=== PATIENT | male | born 1955 | race Caucasian/White ===

== ENCOUNTER 2018-06-21 18:02 | Inpatient (IN) | payer MEDICARE, MEDICAID ==
[~2018-06-21 18:02] MED LIST: ISOVUE-370 76%-LOCM 1 ML ONE
[2018-06-21 18:19] LABS: #Basophils 0.1 thou/uL (0.0-0.2); #Eosinphils 0.1 thou/uL (0.0-0.7); #Lymphocytes 2.7 thou/uL (1.20-3.40); #Monocytes 1.1 thou/uL (0.11-0.59); #Neutrophils 3.9 thou/uL (1.40-6.50); %Basophils 0.8 % (0.0-1.0); %Eosinophils 1.4 % (0.0-10.0); %Lymphocytes 34.2 % (21.0-51.0); %Monocytes 14.3 % (0.0-10.0); %Neutrophils 49.3 % (42.0-75.0); Hemoglobin 13.4 g/dL (14.0-18.0); Mean Corpuscular HGB CONC 32.9 g/dL (32.0-36.0); Mean Corpuscular Hemoglobin 31.6 pg (27.0-31.0); Mean Platelet Volume 6.5 fL (7.4-10.4); Platelet Count 205 thou/uL (130-400); RBC Distribution Width 12.2 % (11.5-14.5); Red Blood Cell (RBC) Count 4.23 mill/uL (4.70-6.10); White Blood Cell (WBC) Count 7.9 thou/uL (4.8-10.8)
[2018-06-21 18:27] LABS: INR-International Normal Ratio 1.1; PTT 30.2 SEC (22.9-36.1); Prothrombin Time 14.7 SEC (12.0-14.7)
--- NOTE | 2018-06-21 18:45 | CT ---
Exam: Brain CT without IV contrast: HISTORY: Level 2 stroke alert, and witness fall, seizure, history of prior seizures COMPARISON: 09/17/2016 FINDINGS: Large area of encephalomalacia in the left frontal lobe with considerable associated brain volume los s. Left-sided ventriculostomy tube. Prior left-sided craniotomy. No mass or bleed or other significant acute process. Stable from prior study. IMPRESSION: Extensive stable left frontal encephalomalacia, prior surgery, and old volume loss. No new mass or ac gregg hemorrhage. Findings were discussed with Dr. Riggins at 6:39 PM CODE CR
[2018-06-21 18:49] LABS: ALT (SGPT) 13 U/L (8-55); AST (SGOT) 18 U/L (5-34); Albumin 3.9 g/dL (3.4-4.8); Alkaline Phosphatase 42 U/L (40-150); Anion Gap 13 mmol/L (10-20); BUN (Urea Nitrogen) 17 mg/dL (8.4-25.7); Bilirubin, Total 0.8 mg/dL (0.2-1.2); CK (CPK) 111 U/L (30-200); Calc. Creatinine Clearance 0 mL/min (70-130); Calcium 9.2 mg/dL (7.8-10.44); Carbon Dioxide 25 mmol/L (23-31); Chloride 105 mmol/L (98-107); Estimated GFR-MDRD 83; Globulin 2.7 g/dL (2.4-3.5); Glucose 89 mg/dL (80-115); Potassium 3.3 mmol/L (3.5-5.1); Protein, Total 6.6 g/dL (5.8-8.1); Sodium 140 mmol/L (136-145)
--- NOTE | 2018-06-21 19:46 | RAD ---
PORTABLE CHEST: History: Fall with seizure activity. Comparison: 06-04-17 FINDINGS: Heart size is borderline. There is elevation of the right hemidiaphragm. Old right rib fractures are seen. There are post-operative changes of the right clavicle noted. Ventriculoperitoneal shunt tube i s seen. IMPRESSION: Chronic lung change. No acute process. POS: [facility] [place]
--- NOTE | 2018-06-21 20:09 | CT ---
EXAM: CT ANGIOGRAM OF THE HEAD WITH 3D RENDERING CT ANGIOGRAM OF THE NECK WITH 3D RENDERING: History: Seizure, stroke alert, unwitnessed fall. FINDINGS: CT ANGIOGRAM HEAD WITH 3D RENDERING: The left vertebral is the dominant vertebral. There are some atherosclerotic calcific plaques involvi ng the cavernous portions of both intracranial ICAs. No evidence for a major branch occlusion, in par ticular, the M1 segments bilaterally are patent. Area of encephalomalacia in the left frontal lobe wi th left craniotomy changes and left sided ventriculostomy tube. IMPRESSION: No evidence for significant major branch occlusion. No M1 segment abnormality. Minimal atheroscleroti c disease. Smaller caliber right vertebral with a more dominant left vertebral artery. Old left front al encephalomalacia. CT ANGIOGRAM NECK WITH 3D RENDERING: No evidence for significant carotid or vertebral artery stenosis. Mild atherosclerotic plaque. There is a poorly circumscribed somewhat elongated parenchymal density in the right upper lobe which has mo re of the appearance of a scar and was present and appears little changed from 2017 exam. IMPRESSION: No hemodynamically significant stenosis. Minimal atherosclerotic vascular disease. Findings were discussed with Dr. Riggins in the Emergency Department at 7:15 p.m. Code CR POS: [facility]
[2018-06-21] MEDS ORDERED: Aspirin Chewable 81 MG TAB ONE ×2 (20:49→20:50)
[2018-06-21] MEDS ORDERED: Acetaminophen 325 MG TAB PO PRN (22:39)
[2018-06-21] MEDS: Sodium Chloride 0.9% 1,000 ML IV SCH (23:50)
[2018-06-22 00:27] VITALS: BMI 24.5
--- NOTE | 2018-06-22 01:29 | HP ---
CHIEF COMPLAINT: Change in mental status and seizure. HISTORY OF PRESENT ILLNESS: The patient is a 62-year-old male with a history of seizure disorder, is a nursing room resident. 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 This is per ER documentation. The patient had an unwitnessed fall last night followed by a witnessed seizure. This is per again the ER records. The patient is unable to provide me any history. The patient then had another witnessed seizure at the senior living; however, it was noted that the patient was able to eat breakfast, however, appeared to continue to be very lethargic through lunch. At this time, he was brought into the hospital for further evaluation. Apparently, the patient was able to have a conversation with EMS en route and was noted to have a little bit of slurred speech. PAST MEDICAL HISTORY: 1. Seizure disorder. 2. Schizophrenia. 3. Alzheimer disease. 4. History of bowel obstruction. SURGICAL HISTORY: 1. 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 2. Hernia repair. 3. Resection of the brain tumor. 4. Tracheostomy with subsequent removal. SOCIAL HISTORY: No alcohol use, drug use, or smoking history per records. He is a DNAR and this is through outside hospital documentation. ALLERGIES: HE IS ALLERGIC TO DEPAKOTE. MEDICATIONS: 1. Cymbalta 30 mg once a day. 2. Keppra 500 mg b.i.d. 3. Lamictal 200 mg b.i.d. 4. Cogentin 1 mg daily. 5. Trazodone 50 mg at bedtime. 6. Seroquel 100 mg b.i.d. 7. Risperidone 2 mg b.i.d. FAMILY HISTORY: No history of heart disease or cancer. REVIEW OF SYSTEMS: Unable to obtain. PHYSICAL EXAMINATION: VITAL SIGNS: As of the following: Temperature of 98.9, respirations of 18, pulse of 61, blood pressure 113/73, 98% on 2 L. GENERAL: He appears drowsy, however, easily arousable. The patient is able to follow commands. Does not appear in any distress. HEENT: Normocephalic, atraumatic. No lymphadenopathy noted. Pupils are equal and reactive to light. He does have a small scab to his left eyebrow area. CV: S1 and S2 present. No murmurs, rubs, or gallops. LUNGS: Clear to auscultation. No rhonchi or wheezes noted. ABDOMEN: Soft and nontender. Bowel sounds are present x2. EXTREMITIES: No edema. Pedal pulses are present x2. NEUROVASCULAR: No focal deficits noted. The patient is able to move both upper and both lower extremities. SKIN: He does have a small abrasion to his left eyebrow area. MUSCULOSKELETAL: The patient has complete range of motion. He has no deficits noted. LABORATORY RESULTS: As of the following: WBCs of 7.9, hemoglobin of 13.4, hematocrit of 40.6, platelets of 205. Chemistries: Sodium of 140, potassium of 3.3, BUN of 17, creatinine 0.93. Troponins x2 were negative. Urine was not collected. The patient did have a CTA, which indicated no significant stenosis, minimal atherosclerotic vessel disease. He also had a brain CT, which indicated extensive stable left frontal encephalomalacia. No other volume loss. No new masses or acute hemorrhage noted. The patient also had a chest x-ray that just indicated chronic lung changes. No acute processes were noted. ASSESSMENT AND PLAN: The patient is a 62-year-old male who presents to the hospital after having a change in mental status. 1. Encephalopathy, most likely secondary to postictal state from the seizure. We will start the patient on some IV Keppra. Also, we will continue his home medications and also we will continue IV Keppra. CT head did not indicate any acute abnormalities. 2. History of schizophrenia. We will continue his home medications. 3. Seizure disorder. We will continue his home medications. I will also check a urinalysis on this patient. 4. Deep venous thrombosis prophylaxis. We will put the patient on sequential compressive dressings or subcu Lovenox. Job ID: [id number]
[2018-06-22 05:03] LABS: #Eosinphils 0.2 thou/uL (0.0-0.7); #Lymphocytes 1.7 thou/uL (1.20-3.40); #Monocytes 0.8 thou/uL (0.11-0.59); #Neutrophils 3.7 thou/uL (1.40-6.50); %Basophils 0.8 % (0.0-1.0); %Eosinophils 3.2 % (0.0-10.0); %Lymphocytes 26.6 % (21.0-51.0); %Monocytes 11.9 % (0.0-10.0); %Neutrophils 57.6 % (42.0-75.0); Hemoglobin 12.3 g/dL (14.0-18.0); Mean Corpuscular HGB CONC 33.4 g/dL (32.0-36.0); Mean Corpuscular Hemoglobin 32.7 pg (27.0-31.0); Mean Corpuscular Volume 97.9 fL (78.0-98.0); Mean Platelet Volume 6.3 fL (7.4-10.4); Platelet Count 219 thou/uL (130-400); RBC Distribution Width 12.1 % (11.5-14.5); Red Blood Cell (RBC) Count 3.75 mill/uL (4.70-6.10); White Blood Cell (WBC) Count 6.4 thou/uL (4.8-10.8)
[2018-06-22 05:22] LABS: Anion Gap 8 mmol/L (10-20); BUN (Urea Nitrogen) 19 mg/dL (8.4-25.7); Calc. Creatinine Clearance 106 mL/min (70-130); Calcium 8.8 mg/dL (7.8-10.44); Carbon Dioxide 28 mmol/L (23-31); Chloride 105 mmol/L (98-107); Estimated GFR-MDRD Greater than 90; Glucose 86 mg/dL (80-115); Potassium 3.2 mmol/L (3.5-5.1); Sodium 138 mmol/L (136-145)
[2018-06-22] MEDS: lamoTRIgine 100 MG TAB PO SCH ×2 (08:47→21:16)
[2018-06-22] MEDS: Enoxaparin Sodium 40 MG/0.4 ML SYRINGE SC SCH (08:48)
[2018-06-22] MEDS: traZODone HCl 50 MG TAB PO SCH (08:48)
[2018-06-22] MEDS: levETIRAcetam In NaCl (Iso-Os) 1,000 MG in Premix Bag 1 BAG IVPB SCH ×2 (09:42→21:15)
--- NOTE | 2018-06-22 13:49 | PDOC.PN ---
- Subjective Encounter Start Date: 06/22/18 Encounter Start Time: 10:47 Subjective: Admitted after seizures in the snf. 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 Deniedfever, headache or chest pain. - Objective Resuscitation Status - Order Detail: 06/21/18 22:39 Resuscitation Status Routine Resuscitation Status: FULL: Full Resuscitation Vital Signs & Weight: Vital Signs (12 hours) Temp Pulse Resp BP Pulse Ox 06/22/18 11:44 99.0 F 77 18 119/66 90 L 06/22/18 08:00 98.8 F 62 14 125/77 94 L 06/22/18 03:50 98.1 F 61 16 115/73 94 L Weight Weight 170 lb 14.4 oz Result Diagrams: 06/22/18 04:47 06/22/18 04:47 Additional Labs: Accuchecks 06/21/18 18:13 POC Glucose 95 Phys Exam - Physical Examination Constitutional: NAD HEENT: PERRLA, moist MMs Neck: no JVD, supple Respiratory: no wheezing, no rales, no rhonchi, clear to auscultation bilateral Cardiovascular: RRR Gastrointestinal: soft, non-tender, no distention, positive bowel sounds Musculoskeletal: no edema, pulses present Neurological: non-focal, moves all 4 limbs slow mentation. obeys simple command Dx/Plan (1) H/O brain tumor Code(s): Z87.898 - PERSONAL HISTORY OF OTHER SPECIFIED CONDITIONS Status: Chronic Comment: with prior surgery (2) Seizure disorder Code(s): G40.909 - EPILEPSY, UNSP, NOT INTRACTABLE, WITHOUT STATUS EPILEPTICUS Status: Chronic (3) Seizures Code(s): R56.9 - UNSPECIFIED CONVULSIONS Status: Chronic (4) Acute encephalopathy Code(s): G93.40 - ENCEPHALOPATHY, UNSPECIFIED Status: Acute Comment: Most likely due to post ictal state. Improving. - Plan Continue anti epileptics. -: Awaiting Neurology evaluation. -: PT/OT eval and treat. -: Seizure precaution to continue. * .
[2018-06-22 14:41] LABS: Bilirubin Negative (Negative); Blood, Urine Negative (Negative); Clarity CLEAR (Clear); Glucose, Urine (Dipstick) Negative (Negative); Leukocyte Negative (Negative); Nitrite Negative (Negative); Protein, Urine (Dipstick) Negative (Neg-Trace); Specific Gravity, Urine 1.026 (1.002-1.036)
[2018-06-22 14:56] LABS: Bacteria/HPF None Seen HPF (None Seen); Hyaline Casts/LPF NONE SEEN LPF (0-3 Hyaline); RBC/HPF None Seen HPF (0-3); Squamous Epithelial 0-3 HPF (0-3); WBC/HPF None Seen HPF (0-3)
[2018-06-22] MEDS: Sodium Chloride 0.9% 1,000 ML IV SCH (21:15)
--- NOTE | 2018-06-22 23:26 | CON ---
DATE OF CONSULTATION: 06/22/2018 CONSULTING PHYSICIAN: Hospitalist Services. IMPRESSION: Advanced dementia secondary to prior brain tumor with secondary seizures. PLAN: 1. Increase Keppra to 1000 mg twice a day. 2. Continue Lamictal 200 mg twice a day. 3. The patient can be returned to the longterm. HISTORY OF PRESENT ILLNESS: Mr. Shelton is a 62-year-old man with a past history of seizures, dementia, schizophrenia, brain tumor, ventricular shunt, who is a longterm resident. He apparently had a seizure and was transferred here. He had a CT scan of the brain done, which showed an old area of left frontal encephalomalacia. CT angiogram was negative. His lab work was otherwise negative. He has not had any further seizures since admission. PAST MEDICAL HISTORY: As listed above. ALLERGIES: DEPAKOTE. SOCIAL HISTORY: No tobacco or alcohol use. FAMILY HISTORY: Not obtainable. REVIEW OF SYSTEMS: Not obtainable. PHYSICAL EXAMINATION: GENERAL: He is a well-nourished, middle-aged man, lying quietly in bed. HEENT: Pupils are equal and reactive. Eye movements are conjugate. Cranium, normocephalic and atraumatic. There is a small scratch above the left eye. NECK: Supple. No lymphadenopathy noted. EXTREMITIES: No cyanosis or edema. NEUROLOGIC: He is mute and uncooperative. I could not get him to follow any commands. Face appears to be symmetric. His tone seems to be relatively symmetric. Stimulation produced symmetric movement. No abnormal movements are seen. SUMMARY: This is a middle-aged man with epilepsy secondary to prior brain tumor. He had breakthrough seizures despite his prior dosing. I would increase the Keppra dose and he can be discharged for outpatient monitoring. Job ID: [id number]
[2018-06-23] MEDS: Enoxaparin Sodium 40 MG/0.4 ML SYRINGE SC SCH (08:21)
[2018-06-23] MEDS: lamoTRIgine 100 MG TAB PO SCH (08:21)
[2018-06-23] MEDS: traZODone HCl 50 MG TAB PO SCH (08:21)
[2018-06-23] MEDS: levETIRAcetam In NaCl (Iso-Os) 1,000 MG in Premix Bag 1 BAG IVPB SCH (08:22)
--- NOTE | 2018-06-23 10:47 | DIS ---
DATE OF ADMISSION: 06/21/2018 DATE OF DISCHARGE: 06/23/2018 DISCHARGE DIAGNOSES: 1. Breakthrough seizure. 2. Seizure disorder. 3. History of brain tumor. 4. Acute metabolic encephalopathy/postictal state. 5. Hypokalemia. 6. Schizophrenia. CONSULTS: Neurology. HOSPITAL COURSE: A 62-year-old male with known history of seizure disorder, prior history of brain tumor status post surgery, who was admitted from the senior living after 2 episodes of seizures. Neurology consult was obtained, and this was felt to be breakthrough seizures. The patient was started on increased dose of Keppra and had no further episode during this hospitalization. Acute change in mental status was felt to be due to acute metabolic encephalopathy related to postictal state. Acute UTI, however, was ruled out with urinalysis. The patient was later discharged back to the senior living. He also had physical and occupational therapy and was felt to be in need of these, hence outpatient PT and OT was ordered on discharge. PHYSICAL EXAMINATION: VITAL SIGNS: Temperature 98.3, pulse 61, respiratory rate 14, SpO2 of 96% on 2 L nasal cannula, BP 121/77. GENERAL: Comfortable male, in no distress. Afebrile, anicteric, acyanotic. HEENT: Atraumatic. Pupils are reacting to light. Oral mucosa is moist. RESPIRATORY: Good air entry bilaterally with no crackle, rhonchi, or use of accessory muscles. CARDIOVASCULAR: Regular rhythm and rate with normal heart sounds. GI: Abdomen is full, soft, nontender, nondistended with normal bowel sounds. EXTREMITIES: Grossly normal looking atraumatic with no edema or erythema. NEUROLOGIC: Conscious and alert, oriented to person and place at least. The patient answers all questions. He, however, has slow mentation. Moves all extremities. PERTINENT DIAGNOSTIC DATA: CT scan of the brain showed extensive stable left frontal encephalomalacia, features of prior surgery and old volume loss. No new mass or acute hemorrhage noted. CT angio of the head showed no hemodynamically significant stenosis. Minimal atherosclerotic vascular disease was noted. DISCHARGE CONDITION: Improved. DISCHARGE MEDICATIONS: 1. Cogentin 1 mg p.o. b.i.d. 2. Cymbalta 30 mg p.o. daily. 3. Ferrous sulfate 325 mg p.o. b.i.d. 4. Lamotrigine 200 mg p.o. b.i.d. 5. Quetiapine fumarate 100 mg p.o. b.i.d. 6. Risperdal 3 mg p.o. b.i.d. 7. Trazodone 50 mg p.o. q.p.m. 8. Keppra 1000 mg p.o. b.i.d. FOLLOWUP: 1. Followup with PCP in 1 week. 2. Follow up with neurologist in 4 weeks. Discharge took 36 minutes. Job ID: [id number]
--- NOTE | 2018-06-23 10:54 | PQF ---
DATE: 06-23-18 ATTN: DR. RE WHITFIELD Please exercise your independent, professional judgment in responding to the clarification form. Clinical indicators are provided on the bottom of this form for your review Please check appropriate box(s): [ ] Encephalopathy: Type: [ ] Acute [ ] Subacute [ ] Chronic Etiology: [ ] Metabolic [ ] Toxic [ ] Other (please specify) [ ] Transient Alteration of Awareness [ ] Other diagnosis [ ] Unable to determine In addition, please specify: Present on Admission (POA): [ ] Yes [ ] No [ ] Unable to determine For continuity of documentation, please document condition throughout progress notes and discharge summary. Thank You. 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 TREATMENTS: NEUROLOGY CONSULT 06-22-18: ADVANCED DEMENTIA 2/2 TO PRIOR BRAIN TUMOR WITH SECONDARY SEIZURES (This form is maintained as a part of the permanent medical record) 2014 [employer]. All Rights Reserved MARY [email or web address] [email or web address] Office: [phone] [facility] HOSPITALRubén
[2018-06-23 12:23] VITALS: TEMP 98
[2018-06-23 14:00] VITALS: BP 108/74
== END 2018-06-23 12:30 | DRG 100 ==
LOC: ERS 18:02 → 2SE 20:25
PROVIDERS: ADMIT Emergency Medicine; ATTEND Emergency Medicine
DX: G40.89 Other seizures (principal); G93.41 Metabolic encephalopathy; Z66 Do not resuscitate; F20.9 Schizophrenia, unspecified; G30.9 Alzheimer's disease, unspecified; F02.80 Dementia in other diseases classified elsewhere, unspecified severity, without behavioral disturbance, psychotic disturbance, mood disturbance, and anxiety; E87.6 Hypokalemia; Z87.898 Personal history of other specified conditions; Z79.899 Other long term (current) drug therapy
CPT/HCPCS: 36415; 36416; 70450; 70496; 70498; 71045; 80048; 80053; 81001; 82550; 84484; 85025; 85610; 85730; 93005; 94760; J1650; J1953; Q9966

== ENCOUNTER 2018-10-13 01:33 | Inpatient (IN) | payer MEDICARE, MEDICAID ==
[2018-10-13] MEDS ORDERED: Acetaminophen 650 MG Suppository ONE (01:49)
[2018-10-13 02:12] LABS: #Lymphocytes 0.9 thou/uL (1.20-3.40); #Monocytes 0.6 thou/uL (0.11-0.59); #Neutrophils 8.9 thou/uL (1.40-6.50); %Eosinophils 0.1 % (0.0-10.0); %Lymphocytes 8.9 % (21.0-51.0); %Monocytes 5.9 % (0.0-10.0); Hemoglobin 14.3 g/dL (14.0-18.0); Mean Corpuscular HGB CONC 33.9 g/dL (32.0-36.0); Mean Corpuscular Hemoglobin 32.3 pg (27.0-31.0); Mean Corpuscular Volume 95.5 fL (78.0-98.0); Mean Platelet Volume 6.5 fL (7.4-10.4); Platelet Count 253 thou/uL (130-400); RBC Distribution Width 11.9 % (11.5-14.5); Red Blood Cell (RBC) Count 4.41 mill/uL (4.70-6.10); White Blood Cell (WBC) Count 10.5 thou/uL (4.8-10.8)
[2018-10-13 02:20] LABS: ALT (SGPT) 15 U/L (8-55); AST (SGOT) 25 U/L (5-34); Albumin 4.3 g/dL (3.4-4.8); Alkaline Phosphatase 56 U/L (40-150); Anion Gap 14 mmol/L (10-20); BUN (Urea Nitrogen) 18 mg/dL (8.4-25.7); Bilirubin, Total 0.4 mg/dL (0.2-1.2); Calc. Creatinine Clearance 0 mL/min (70-130); Carbon Dioxide 25 mmol/L (23-31); Chloride 101 mmol/L (98-107); Estimated GFR-MDRD 90; Globulin 3.4 g/dL (2.4-3.5); Glucose 117 mg/dL (80-115); Protein, Total 7.7 g/dL (5.8-8.1); Sodium 136 mmol/L (136-145)
[2018-10-13 02:32] LABS: Bacteria/HPF None Seen HPF (None Seen); Bilirubin Negative (Negative); Blood, Urine 2+ (Negative); Clarity Extra Turbid (Clear); Glucose, Urine (Dipstick) Normal (Negative); Leukocyte Negative Leu/uL (Negative); Nitrite Negative (Negative); Protein, Urine (Dipstick) 10 mg/dL (Neg-Trace); Squamous Epithelial None Seen HPF (0-3); Urobilinogen Normal mg/dL (Less than 2); WBC/HPF 0-3 HPF (0-3)
[2018-10-13 02:34] LABS: Unclassified Crystals 4+ HPF (None Seen)
[2018-10-13 02:35] LABS: UA Pathologist Review? Unknown Crystals
[2018-10-13] MEDS ORDERED: Piperacillin/Tazobactam 4.5 GM VIAL ONE (03:16)
[2018-10-13] MEDS ORDERED: Vancomycin HCl 1.75 GM in Sodium Chloride 0.9% 500 ML IVPB SCH ×2 (03:30→16:00)
[2018-10-13] MEDS ORDERED: Acetaminophen 325 MG TAB PO PRN (05:34)
[2018-10-13] MEDS ORDERED: HYDROcodone/Acetaminophen 5/325 mg Tablet PO PRN (05:34)
[2018-10-13] MEDS ORDERED: Ondansetron ODT 4 MG TAB PO PRN (05:34)
[2018-10-13] MEDS ORDERED: hydrALAZINE 20 MG/ML VIAL SLOW IVP PRN (05:34)
[2018-10-13] MEDS ORDERED: Loperamide HCl 2 MG CAP PO PRN (05:34)
[2018-10-13] MEDS ORDERED: Bisacodyl 10 MG SUPP PR PRN (05:34)
[2018-10-13] MEDS ORDERED: Diabetic Tussin 200 MG/10 ML UDCUP PO PRN (05:34)
[2018-10-13] MEDS ORDERED: Calcium Carbonate 500 MG ChewTAB PO PRN (05:34)
[2018-10-13] MEDS ORDERED: Cepastat Lozenges 1 LOZ PO PRN (05:34)
[2018-10-13] MEDS ORDERED: Zolpidem Tartrate 5 MG TAB PO PRN (05:34)
[2018-10-13] MEDS ORDERED: Senokot S 8.6-50 MG TAB PO PRN (05:34)
[2018-10-13] MEDS ORDERED: Loratadine 10 MG TAB PO PRN (05:34)
[2018-10-13] MEDS ORDERED: Sodium Chloride 0.65% Nasal 44 ML BOT EA NARE PRN (05:34)
[2018-10-13] MEDS ORDERED: Artificial Tears 18 DROP/0.9 ML EA EYE PRN (05:34)
[2018-10-13] MEDS ORDERED: Ondansetron PF 4 MG/2 ML Vial IVP PRN (05:34)
[2018-10-13 05:53] VITALS: BMI 22.0
[2018-10-13] MEDS: Sodium Chloride 0.9% 1,000 ML IV SCH ×2 (06:19→18:39)
[2018-10-13] MEDS: cefTRIAXone\\ROCEPHIN 2 GM in Sodium Chloride 0.9% 100 ML IVPB SCH (06:20)
--- NOTE | 2018-10-13 08:13 | RAD ---
SINGLE VIEW CHEST: HISTORY: Altered mental status with fever and tachycardia. COMPARISON: 06/21/2018 FINDINGS: A single view of the chest shows a normal sized cardiomediastinal silhouette. There is no evidence o f consolidation, mass, or pleural effusion. There are multiple right rib fractures, which may be rem ote. The patient has a plate on the right clavicle. 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 IMPRESSION: No evidence of acute cardiopulmonary disease. POS: [facility]
--- NOTE | 2018-10-13 08:47 | HP ---
PRIMARY CARE PHYSICIAN: [facility] Call Admission. REASON FOR ADMISSION: Encephalopathy, sepsis. HISTORY OF PRESENT ILLNESS: A 63-year-old male, who has underlying history of the schizophrenia, Alzheimer's type of dementia, and seizure disorder. Currently, the patient is completely encephalopathic and he cannot provide any history. [facility] and that is why history obtained from [facility] record as well as emergency room record. The patient was initially evaluated at [facility], where the patient had suspected finding of seizure. It was presumed that the patient had seizure and he was therefore postictal state. At [facility], the patient has DNR. At [facility], the patient was given Versed, Keppra, Cerebyx 1 g, Ativan, and another couple of doses of Versed. He had CT brain, which showed no new finding. CT cervical spine did not show any acute process. Routine blood test was also unremarkable. Subsequently, the patient was transferred to our emergency room and he had chest x-ray, which was not showing any acute process. The patient was febrile and that is why vancomycin and Zosyn was given and Tylenol rectally given and the patient was given IV fluid. Subsequently, he was admitted to telemetry floor. REVIEW OF SYSTEMS: All review of system tried to review with the patient, but unable to review at this point because of his encephalopathy and altered mental status. PAST MEDICAL HISTORY: Alzheimer's type of dementia, seizure disorder, Parkinson disease, chronic normocytic anemia, and history of CVA. PAST SURGICAL HISTORY: History of RIBBON HAND shunt, hernia repair, resection of brain tumor, and tracheostomy with subsequent removal. PAST PSYCHIATRIC HISTORY: Schizophrenia. SOCIAL HISTORY: The [facility] is from [facility]. He has out of hospital DNR. He has no history of tobacco, alcohol, or illicit drug abuse. ALLERGIES: THE PATIENT IS ALLERGIC TO DEPAKOTE. FAMILY HISTORY: No family history of coronary artery disease, stroke, or cancer. CURRENT HOME MEDICATION: 1. Cogentin 1 mg b.i.d. 2. Cymbalta 30 mg daily. 3. Ferrous sulfate 325 mg b.i.d. 4. Lamotrigine 200 mg p.o. b.i.d. 5. Seroquel 200 mg b.i.d. 6. Risperidone 3 mg p.o. b.i.d. 7. Trazodone 50 mg at bedtime. 8. Keppra 1000 mg b.i.d. EMERGENCY ROOM COURSE: As mentioned above while in hospital, the patient is given vancomycin, Zosyn, Tylenol, IV fluid. In another emergency room, the patient received Keppra, Cerebyx, and versed. PHYSICAL EXAMINATION: VITAL SIGNS: Currently, temperature 101.5, pulse 92, respiratory rate 20, saturation 97% on room air, and blood pressure 110/56. Weight 162 pounds. GENERAL: The patient is currently disoriented, in no obvious acute distress. Chronically ill. HEENT: Head; normocephalic, atraumatic. Eyes; pupils are round and reactive to light. Extraocular muscle intact. ENT; oropharynx within normal limits. Moist mucous membranes. No oral lesion. No pharyngeal erythema. No exudate. NECK: Supple. No JVD. No meningeal signs of irritation. LUNGS: Clear to auscultation without any rhonchi or rales. CARDIAC: S1 and S2 regular. Tachycardia. No murmur. No gallop. No rub. ABDOMEN: Soft. Bowel sounds present. Nontender. Nondistended. No organomegaly. No mass. No suprapubic tenderness. BACK: Unremarkable. No CVA tenderness. EXTREMITIES: Upper extremity, the patient does have contracture of right upper extremity, lower extremity bruising noted at bilateral knee. NEUROLOGIC: At this point, unable to assess because of altered mental status. SIGNIFICANT LABORATORY DATA: EKG showing sinus tachycardia, incomplete right bundle-branch block pattern, left anterior fascicular block. Chest x-ray based on my review, no acute cardiopulmonary process. CT brain based on my review, no acute intracranial process. CT cervical spine showing no acute fracture or dislocation. Significant labs; WBC 9.8, hemoglobin 14.0, and platelet 267. BMP; sodium 140, potassium 3.8, chloride 102, carbon dioxide 16, anion gap 26, BUN 20, creatinine 1.12, glucose 169, and calcium 9.9. Lactic acid 1.3. LFT; AST 21, ALT 14, alkaline phosphatase 54, and albumin 4.3. Procalcitonin 0.02. Urinalysis unremarkable. ASSESSMENT AND PLAN: 1. Acute on chronic encephalopathy, probably related with sepsis. Differential diagnosis is postictal phase from seizure. 2. Sepsis, unclear etiology. The patient has high-grade fever, but no leukocytosis. At this point, source of infection is not clear. Dr. Koo, infectious Disease will be consulted. 3. Seizure disorder. As per report, the patient had seizure at [facility], where he was given Keppra and Cerebyx. We will check Keppra level and we will consult Neurology as well for their opinion. Further investigation will defer to Neurology. 4. History of anxiety, depression, schizophrenia, bipolar disorder. The patient is on bunch of antipsychotic medication. Because of altered mental status, I will hold on all those medication. 5. Deep venous thrombosis prophylaxis. Lovenox 40 mg subcu daily. 6. Gastrointestinal prophylaxis. Pepcid 20 mg p.o. b.i.d. 7. Code status: The patient has out of hospital DNR that is confirmed. The patient will be DNR while in hospital. 8. Disposition plan: Based on clinical course, we will follow up on culture result and the patient will need bedside swallow evaluation and possibly speech evaluation and if the patient able to eat, then will continue with regular diet. Job ID: [id number]
[2018-10-13] MEDS ORDERED: FERROUS SULFATE 325 MG PO SCH (09:00)
[2018-10-13] MEDS: levETIRAcetam In NaCl (Iso-Os) 1,000 MG in Premix Bag 1 BAG IVPB SCH ×2 (09:11→23:52)
[2018-10-13] MEDS: Famotidine 20 MG TAB PO SCH ×2 (09:12→21:37)
[2018-10-13] MEDS: Ferrous Sulfate 325 MG TAB PO SCH ×2 (09:12→18:40)
[2018-10-13] MEDS: Enoxaparin Sodium 40 MG/0.4 ML SYRINGE SC SCH (09:12)
--- NOTE | 2018-10-13 17:29 | CON ---
DATE OF TELEMEDICINE CONSULTATION: 10/13/2018 Accompanying nurse is Jay Sultana. HISTORY OF PRESENT ILLNESS: The patient is unable to give any medical history. Most of the history was obtained from the chart and also from the RN. The patient has been encephalopathic. He has history of schizophrenia, Alzheimer's, and seizure disorder. He is unable to provide any history. He is in a retirement and the patient was evaluated at [facility] for possible seizure. It was presumed that he had a seizure at the retirement and was postictal. He was given Versed, Keppra, Cerebyx 1 g, Ativan, and more Versed at the [facility]. He was subsequently transferred here for higher level of care. CT scan was negative for any acute infarct or bleed. CT of the spine was also negative. The patient had labs, which were unremarkable at the outside facility, and in our ER , he had chest x-ray, which did not show any process. He was started on antibiotics for possible sepsis. He has not been observed to have any seizures in the hospital since admission. The patient had some rest tremor and is able to give his name per nurse. PAST MEDICAL HISTORY: 1. Alzheimer's. 2. Seizure disorder. 3. Parkinson disease. 4. Chronic anemia. 5. CVA. PAST SURGICAL HISTORY: 1. DELIVERY AND MAIL SORTER shunt. 2. Hernia repair. 3. Brain tumor resection. 4. Tracheostomy with removal subsequently. PREVIOUS PSYCHIATRIC HISTORY: Positive for schizophrenia. SOCIAL HISTORY: He lives in a retirement. He has no written history of smoking or alcohol in chart. ALLERGIES: STATED ALLERGY IN CHART IS DEPAKOTE. FAMILY HISTORY: Unknown. REVIEW OF SYSTEMS: Unobtainable due to his mental status. MEDICATIONS: At home include; 1. Cogentin. 2. Cymbalta. 3. Ferrous sulfate. 4. Lamictal. 5. Seroquel. 6. Risperidone. 7. Trazodone. 8. Keppra 1000 mg b.i.d. LABORATORY AND DIAGNOSTIC DATA: Lab workup so far; white count 10.5, hemoglobin 14.3, hematocrit 42.1, platelet count 253. Sodium 136, potassium 4.0, chloride 101, bicarb 25, BUN 18, creatinine 0.86, glucose 117. Liver functions within normal limits. Urinalysis is abnormal with blood and turbidity and ketones. His CT of the head was noted and this was performed at the outside facility. He has stable encephalomalacia of left frontal lobe with evidence of post left frontal craniotomy. Stable calcification along the margin of the left lateral ventricle. No intracranial hemorrhage, and no acute infarct or bleed. C-spine CT scan was also completed, which showed no acute findings. Laboratory workup as noted already. PHYSICAL EXAMINATION: VITAL SIGNS: Blood pressure 93/59, temperature 99.6, pulse 84, respiratory rate 18, and O2 sats 95% on room air. GENERAL APPEARANCE: He is pale, comfortable in bed. He has left upper extremity rest tremor, neck dystonia with positioning of his neck to the right. CHEST: Clear vesicular breathing. CARDIOVASCULAR: S1 and S2 heard. No murmurs. NEUROLOGICAL: He is unresponsive. He does try to talk, but his speech is difficult to understand and he moves his extremities spontaneously. He does not follow any commands. Cranial nerves, pupils 3 mm bilaterally. No facial asymmetry noted. Motor examination; left upper extremity rest tremor, dystonia of the neck with torticollis to the right, and he had rigidity of 3+ in both lower extremities, 2 + in upper extremities. He moves his extremities spontaneously, but not able to follow commands. He has withdrawal to pain in all extremities. Deep tendon reflexes 2 +. Sensory, cerebellar, unable to assess. Gait, not testable. IMPRESSION AND PLAN: The patient is a 63-year-old man with pre-existing Parkinson disease, question of schizophrenia, history of seizures, and dementia. He is currently admitted for possible seizures and postictal state. Based on his current medical record, he seems to have received fairly reasonable doses of Versed and Ativan in an attempt to control his seizures at the outside facility. He may still be processing these through his system. At this time, he is no longer having any further seizures. His examination when awake shows left upper extremity rest tremor and dystonia of the neck to the right with rigidity, which is usual for Parkinson's patient. He also has spontaneous movement of his extremities, but not to command. 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 His examination does not show focal weakness. At this time, recommendation is to continue Keppra 1000 mg b.i.d. and do not give this patient any sedatives for now. I will follow up the patient again tomorrow. Job ID: [id number] MTDD
[2018-10-13] MEDS: Vancomycin HCl 1.5 GM in Sodium Chloride 0.9% 250 ML 300 ML IVPB SCH (18:38)
[2018-10-14] MEDS: Vancomycin HCl 1.5 GM in Sodium Chloride 0.9% 250 ML 300 ML IVPB SCH ×2 (04:24→16:31)
[2018-10-14 05:03] LABS: #Eosinphils 0.2 thou/uL (0.0-0.7); #Lymphocytes 1.3 thou/uL (1.20-3.40); #Monocytes 0.8 thou/uL (0.11-0.59); #Neutrophils 5.2 thou/uL (1.40-6.50); %Basophils 0.5 % (0.0-1.0); %Eosinophils 2.2 % (0.0-10.0); %Lymphocytes 17.7 % (21.0-51.0); %Monocytes 10.5 % (0.0-10.0); %Neutrophils 69.1 % (42.0-75.0); Hemoglobin 12.3 g/dL (14.0-18.0); Mean Corpuscular HGB CONC 33.8 g/dL (32.0-36.0); Mean Corpuscular Volume 94.5 fL (78.0-98.0); Mean Platelet Volume 6.6 fL (7.4-10.4); Platelet Count 204 thou/uL (130-400); RBC Distribution Width 11.6 % (11.5-14.5); Red Blood Cell (RBC) Count 3.86 mill/uL (4.70-6.10); White Blood Cell (WBC) Count 7.5 thou/uL (4.8-10.8)
[2018-10-14 05:27] LABS: ALT (SGPT) 16 U/L (8-55); AST (SGOT) 49 U/L (5-34); Albumin 3.5 g/dL (3.4-4.8); Alkaline Phosphatase 41 U/L (40-150); Anion Gap 11 mmol/L (10-20); BUN (Urea Nitrogen) 10 mg/dL (8.4-25.7); Bilirubin, Total 0.6 mg/dL (0.2-1.2); Calc. Creatinine Clearance 108 mL/min (70-130); Calcium 8.7 mg/dL (7.8-10.44); Carbon Dioxide 23 mmol/L (23-31); Chloride 107 mmol/L (98-107); Estimated GFR-MDRD Greater than 90; Globulin 2.7 g/dL (2.4-3.5); Glucose 77 mg/dL (80-115); Potassium 3.3 mmol/L (3.5-5.1); Protein, Total 6.2 g/dL (5.8-8.1); Sodium 138 mmol/L (136-145)
[2018-10-14] MEDS: cefTRIAXone\\ROCEPHIN 2 GM in Sodium Chloride 0.9% 100 ML IVPB SCH (06:05)
[2018-10-14] MEDS: Sodium Chloride 0.9% 1,000 ML IV SCH ×3 (08:32→23:18)
[2018-10-14] MEDS ORDERED: Potassium Chloride 40 MEQ in Sodium Chloride 0.9% 500 ML IVPB SCH (08:45)
[2018-10-14] MEDS: Ferrous Sulfate 325 MG TAB PO SCH ×2 (08:54→16:42)
[2018-10-14] MEDS: Enoxaparin Sodium 40 MG/0.4 ML SYRINGE SC SCH (08:55)
[2018-10-14] MEDS: levETIRAcetam In NaCl (Iso-Os) 1,000 MG in Premix Bag 1 BAG IVPB SCH ×2 (08:55→23:10)
[2018-10-14] MEDS: Famotidine 20 MG TAB PO SCH ×3 (08:55→22:36)
--- NOTE | 2018-10-14 10:30 | PDOC.HOSPP ---
- Subjective Encounter Date: 10/14/18 Encounter Time: 10:28 Subjective: 63 y.o male with brain tumor s/p resection, seizure disorder, parkinson, dementia and schizophrenia who presented to ER from group home for evaluation of seizure and AMS and was found to be febrile and tachycardic. More awake today. Poor historian. Fever has subsided. - Objective Vital Signs & Weight: Vital Signs (12 hours) Temp Pulse Resp BP Pulse Ox 10/14/18 08:00 96 10/14/18 07:55 97.9 F 69 17 121/73 96 10/14/18 04:25 98.3 F 69 16 105/63 95 10/14/18 03:10 98.3 F 69 16 105/63 95 10/14/18 00:00 99.4 F Weight Weight 170 lb 11.2 oz I&O: 10/13/18 10/14/18 10/15/18 06:59 06:59 06:59 Intake Total 600 700 Balance 600 700 Result Diagrams: 10/14/18 04:28 10/14/18 04:28 ROS - Medication Medications: Active Medications Generic Name Dose Route Start Last Admin Trade Name Freq PRN Reason Stop Dose Admin Enoxaparin Sodium 40 mg 10/13/18 09:00 10/14/18 08:55 Lovenox SC 40 mg 0900 NICK Administration Famotidine 20 mg 10/13/18 09:00 10/14/18 08:55 Pepcid PO Not Given BID NICK Ferrous Sulfate 325 mg 10/13/18 08:00 10/14/18 08:54 Feosol PO Not Given BID- NICK Sodium Chloride 1,000 mls @ 100 mls/hr 10/13/18 05:45 10/14/18 08:32 Normal Saline 0.9% IV Not Given .Q10H NICK Ceftriaxone Sodium 2 gm/ 100 mls @ 200 mls/hr 10/13/18 06:00 10/14/18 06:05 Sodium Chloride IVPB 100 mls 0600 NICK Administration Levetiracetam 1,000 mg/ Device 100 mls @ 200 mls/hr 10/13/18 09:00 10/14/18 08:55 IVPB 100 mls BID NICK Administration Vancomycin HCl 1.5 gm/ Sodium 300 mls @ 200 mls/hr 10/13/18 16:00 10/14/18 04 :24 Chloride IVPB 300 mls Q12H NICK Administration Potassium Chloride 40 meq/ 520 mls @ 130 mls/hr 10/14/18 08:45 10/14/18 09:09 Sodium Chloride IVPB 10/14/18 12:00 520 mls NOW NICK Administration Sodium Chloride 10 ml 10/13/18 09:00 10/14/18 08:55 Flush - Normal Saline IVF Not Given Q12HR NICK - Exam awake alert General - other findings: afebrile Eye: anicteric sclera ENT: no oropharyngeal lesions (scars of prior head surgery noted), moist mucosa Neck: symmetric Heart: RRR Respiratory: no rales, no ronchi (Fair air entry bilaterally with few transmitted sound) Gastrointestinal: soft, non-tender, non-distended, normal bowel sounds Extremities: no cyanosis, no edema Neurological: CN's grossly intact (right upper limb weakness noted. Moving all other limbs but weakly) Hosp A/P (1) Streptococcus pneumoniae infection Status: Acute (2) Bacteremia due to Gram-positive bacteria Code(s): R78.81 - BACTEREMIA Status: Acute (3) Hypokalemia Code(s): E87.6 - HYPOKALEMIA Status: Acute (4) Parkinson disease Code(s): G20 - PARKINSON'S DISEASE Status: Acute (5) Alzheimer's dementia Code(s): G30.9 - ALZHEIMER'S DISEASE, UNSPECIFIED Status: Chronic (6) H/O brain tumor Code(s): Z87.898 - PERSONAL HISTORY OF OTHER SPECIFIED CONDITIONS Status: Chronic (7) Seizure disorder Code(s): G40.909 - EPILEPSY, UNSP, NOT INTRACTABLE, WITHOUT STATUS EPILEPTICUS Status: Chronic (8) Sepsis Code(s): A41.9 - SEPSIS, UNSPECIFIED ORGANISM Status: Acute (9) Acute encephalopathy Code(s): G93.40 - ENCEPHALOPATHY, UNSPECIFIED Status: Acute (10) Physical deconditioning Code(s): R53.81 - OTHER MALAISE Status: Acute - Plan increase Rocephin to 2 gram daily. Replete serum potassium. Await microbe susceptibility Await Neurology re evaluation continue seizure precation Avoid sedatives. Continue keppra. [place] oral intake.
[2018-10-14 15:16] LABS: Vancomycin, Trough 15.7 ug/mL
--- NOTE | 2018-10-14 21:10 | PRG ---
DATE OF TELEMEDICINE SERVICE: 10/14/2018 CHIEF COMPLAINT: Altered mental status. This is a followup Telemedicine consult with Jay Sultana. INTERVAL HISTORY: The patient is doing better. He is more awake. He still has mild weakness on the right side and left side upper extremity tremor. Per nursing staff, he had his breakfast today, and he is waking up more. He is on antibiotics currently for possible sepsis. LABORATORY WORKUP: White count 7.5, hemoglobin 12.3, hematocrit 36.5, platelet count 204. Chemistry; sodium 138, potassium 3.3, chloride 107, bicarb 23, BUN 10, creatinine 0.74, glucose 77. PHYSICAL EXAMINATION: VITAL SIGNS: Temperature 97.9, pulse 69, respiratory rate 17, O2 saturations 96 , blood pressure 121/73. GENERAL APPEARANCE: He is more awake today. He has left upper extremity tremor at rest. NEUROLOGIC: He is oriented to person and is also able to follow commands today. Motor examination shows mild weakness of the right side and left upper extremity tremor. Cranial nerves are normal. IMPRESSION: The patient is a 63-year-old man with Parkinson disease and altered mental status. He is thought to have some sepsis, and he is on antibiotics at this time. Currently, he is doing better today and is more oriented. RECOMMENDATIONS: No additional neurological issues at this time. Please continue his treatment for his Streptococcus pneumoniae infection and bacteremia. He can return to his halfway when stable. I will follow up as needed. Job ID: [id number] MTDD
[2018-10-15] MEDS: Vancomycin HCl 1.5 GM in Sodium Chloride 0.9% 250 ML 300 ML IVPB SCH ×2 (04:08→15:22)
[2018-10-15 04:40] LABS: #Eosinphils 0.2 thou/uL (0.0-0.7); #Lymphocytes 1.6 thou/uL (1.20-3.40); #Monocytes 0.8 thou/uL (0.11-0.59); #Neutrophils 3.7 thou/uL (1.40-6.50); %Basophils 0.2 % (0.0-1.0); %Eosinophils 2.5 % (0.0-10.0); %Lymphocytes 25.1 % (21.0-51.0); %Monocytes 13.2 % (0.0-10.0); %Neutrophils 58.9 % (42.0-75.0); Mean Corpuscular HGB CONC 34.1 g/dL (32.0-36.0); Mean Corpuscular Hemoglobin 32.3 pg (27.0-31.0); Mean Corpuscular Volume 94.9 fL (78.0-98.0); Mean Platelet Volume 6.5 fL (7.4-10.4); Platelet Count 222 thou/uL (130-400); RBC Distribution Width 11.7 % (11.5-14.5); Red Blood Cell (RBC) Count 4.03 mill/uL (4.70-6.10); White Blood Cell (WBC) Count 6.2 thou/uL (4.8-10.8)
[2018-10-15 05:01] LABS: ALT (SGPT) 15 U/L (8-55); AST (SGOT) 38 U/L (5-34); Albumin 3.6 g/dL (3.4-4.8); Alkaline Phosphatase 45 U/L (40-150); Anion Gap 9 mmol/L (10-20); BUN (Urea Nitrogen) 9 mg/dL (8.4-25.7); Bilirubin, Total 0.4 mg/dL (0.2-1.2); Calc. Creatinine Clearance 117 mL/min (70-130); Calcium 9.1 mg/dL (7.8-10.44); Carbon Dioxide 27 mmol/L (23-31); Chloride 104 mmol/L (98-107); Estimated GFR-MDRD Greater than 90; Globulin 2.8 g/dL (2.4-3.5); Glucose 90 mg/dL (80-115); Potassium 3.1 mmol/L (3.5-5.1); Protein, Total 6.4 g/dL (5.8-8.1); Sodium 137 mmol/L (136-145)
[2018-10-15] MEDS: cefTRIAXone\\ROCEPHIN 2 GM in Sodium Chloride 0.9% 100 ML IVPB SCH (06:47)
--- NOTE | 2018-10-15 09:21 | PDOC.HOSPP ---
- Subjective Encounter Date: 10/15/18 Encounter Time: : Subjective: 63 y.o male with brain tumor s/p resection, seizure disorder, parkinson, dementia and schizophrenia who presented to ER from [facility] for evaluation of seizure and AMS and was found to be febrile and tachycardic. Fever has subsided. No new problem. Refusing oral medications - Objective Vital Signs & Weight: Vital Signs (12 hours) Temp Pulse Resp BP Pulse Ox 10/15/18 08:00 99.0 F 71 20 127/85 92 L 10/15/18 07:50 92 L 10/15/18 04:00 99.5 F 73 18 129/78 92 L 10/15/18 00:00 99.2 F 72 16 140/84 94 L Weight Weight 170 lb 11.2 oz I&O: 10/14/18 10/15/18 10/16/18 06:59 06:59 06:59 Intake Total 700 780 300 Balance 700 780 300 Result Diagrams: 10/15/18 04:17 10/15/18 04:17 ROS - Medication Medications: Active Medications Generic Name Dose Route Start Last Admin Trade Name Freq PRN Reason Stop Dose Admin Enoxaparin Sodium 40 mg 10/13/18 09:00 10/14/18 08:55 Lovenox SC 40 mg 0900 NICK Administration Famotidine 20 mg 10/13/18 09:00 10/14/18 22:36 Pepcid PO Not Given BID NICK Ferrous Sulfate 325 mg 10/13/18 08:00 10/14/18 16:42 Feosol PO Not Given BID- NICK Ceftriaxone Sodium 2 gm/ 100 mls @ 200 mls/hr 10/13/18 06:00 10/15/18 06:47 Sodium Chloride IVPB 100 mls 0600 NICK Administration Levetiracetam 1,000 mg/ Device 100 mls @ 200 mls/hr 10/13/18 09:00 10/14/18 23:10 IVPB 100 mls BID NICK Administration Vancomycin HCl 1.5 gm/ Sodium 300 mls @ 200 mls/hr 10/13/18 16:00 10/15/18 04 :08 Chloride IVPB 300 mls Q12H NICK Administration Sodium Chloride 10 ml 10/13/18 09:00 10/14/18 21:54 Flush - Normal Saline IVF 10 ml Q12HR NICK Administration - Exam awake alert Eye: anicteric sclera Neck: no JVD Heart: RRR Respiratory: no wheezes, no rales, no ronchi Gastrointestinal: soft, non-tender, non-distended, normal bowel sounds Extremities: no edema Neurological - other findings: Awake and conversational. dysarthria limited speech and comprehension Hosp A/P (1) Hypokalemia Code(s): E87.6 - HYPOKALEMIA Status: Acute (2) Parkinson disease Code(s): G20 - PARKINSON'S DISEASE Status: Acute (3) Alzheimer's dementia Code(s): G30.9 - ALZHEIMER'S DISEASE, UNSPECIFIED Status: Chronic (4) H/O brain tumor Code(s): Z87.898 - PERSONAL HISTORY OF OTHER SPECIFIED CONDITIONS Status: Chronic (5) Seizure disorder Code(s): G40.909 - EPILEPSY, UNSP, NOT INTRACTABLE, WITHOUT STATUS EPILEPTICUS Status: Chronic (6) Sepsis Code(s): A41.9 - SEPSIS, UNSPECIFIED ORGANISM Status: Acute (7) Acute encephalopathy Code(s): G93.40 - ENCEPHALOPATHY, UNSPECIFIED Status: Acute (8) Physical deconditioning Code(s): R53.81 - OTHER MALAISE Status: Acute (9) Positive blood culture Code(s): R78.81 - BACTEREMIA Status: Acute - Plan Continue IV rocephin and Vanc. Replete serum potassium. Get repeat blood culture given multiple organisms growing in 1/2 bottles suggestive of contaminants continue seizure precaution Avoid sedatives. Continue keppra. [place] oral intake. DC IVF
[2018-10-15] MEDS: Potassium Chloride 20 MEQ TAB PO SCH ×3 (09:23→14:18)
[2018-10-15] MEDS: Ferrous Sulfate 325 MG TAB PO SCH ×2 (09:23→15:11)
[2018-10-15] MEDS: Famotidine 20 MG TAB PO SCH ×2 (09:23→20:13)
[2018-10-15] MEDS: levETIRAcetam In NaCl (Iso-Os) 1,000 MG in Premix Bag 1 BAG IVPB SCH ×2 (09:24→20:15)
[2018-10-15] MEDS: Enoxaparin Sodium 40 MG/0.4 ML SYRINGE SC SCH (09:24)
[2018-10-15] MEDS: Sodium Chloride 0.9% 1,000 ML IV SCH (09:28)
[2018-10-15] MEDS ORDERED: Potassium Chloride 40 MEQ in Sodium Chloride 0.9% 500 ML IVPB SCH (10:15)
--- NOTE | 2018-10-15 13:51 | PQF ---
ISMAEL GUERRERO OBINAHID [id number] [facility]-280 [id number] CLINICAL DOCUMENTATION IMPROVEMENT CLARIFICATION FORM: ICD-10 Updated PLEASE DO AN ADDENDUM TO THE PROGRESS NOTE WITH ANY DOCUMENTATION UPDATES OR ADDITIONS AND CARRY THROUGH TO DC SUMMARY. THANK YOU. DATE: 10/15/2018 ATTN:DR. Lilly GRIMALDO Please exercise your independent, professional judgment in responding to the clarification form. Clinical indicators are provided on the bottom of this form for your review. Please check appropriate box(s): Acute Encephalopathy: Etiology: [ ] Hypertensive [ ] Metabolic [ ] Toxic [ ] Hepatic with Coma [ ] Hepatic w/o Coma [ ] Hypoxic [ ] Septic [ ] Drug induced: [ ] Unspecified [ ] in the setting of underlying dementia [ ] Transient Alteration of Awareness [ x ] Other diagnosis Multifactorial most likely with sedatives and presumed sepsis interplaying [ ] Unable to determine In addition, please specify: Present on Admission (POA): [x ] Yes [ ] No [ ] Unable to determine For continuity of documentation, please document condition throughout progress notes and discharge summary. Thank You. CLINICAL INDICATORS - SIGNS / SYMPTOMS / LABS 10/13 H & P (NOEMI) A/P : 1) ACUTE ON CHRONIC ENCEPHALOPATHY, PROBABLY RELATED TO SEPSIS. DIFFERENTIAL DIAGNOSIS IS POSTICTAL PHASE FROM SEIZURE. 10/13 CONSULT (INDER) IMPRESSION:AT THIS TIME HE IS ENCEPHALOPATHIC, LIKELY MULTIFACTORIAL IN ETIOLOGY INCLUDING DECREASED ABORIGINAL COMMUNITY COUNCIL MEMBER RESERVE WITH FRONTAL LOBE SURGERY, PARKINSON'S , DEMENTIA, AND HE IS MORE PRONE TO HAVING HALLUCINATIONS OR ALTERED MENTAL STATUS. 10/14- 10/15 PN (OBI ) A/P : 8) ACUTE ENCEPHALOPATHY RISK: HX OF BRAIN TUMOR RESECTION, ALZHEIMER, DEMENTIA ( CONSULT/ INDER) TREATMENTS: NEUROLOGY CONSULT IV FLUIDS (10/13-PRESENT) ROCEPHIN IV (10/13-PRESENT) VANCOMYCIN IV (10/13-PRESENT) SUPPLEMENTAL OXYGEN THANK YOU ! ZULLY (This form is maintained as a part of the permanent medical record) 2014 [employer]. All Rights Reserved MARY BETH [phone] ELIE
[2018-10-16] MEDS: Vancomycin HCl 1.5 GM in Sodium Chloride 0.9% 250 ML 300 ML IVPB SCH ×2 (03:01→15:11)
[2018-10-16] MEDS: cefTRIAXone\\ROCEPHIN 2 GM in Sodium Chloride 0.9% 100 ML IVPB SCH (06:11)
[2018-10-16] MEDS: Famotidine 20 MG TAB PO SCH ×2 (08:29→22:28)
[2018-10-16] MEDS: Ferrous Sulfate 325 MG TAB PO SCH ×2 (08:29→16:46)
[2018-10-16] MEDS: Enoxaparin Sodium 40 MG/0.4 ML SYRINGE SC SCH (08:30)
[2018-10-16] MEDS: levETIRAcetam In NaCl (Iso-Os) 1,000 MG in Premix Bag 1 BAG IVPB SCH ×2 (08:30→22:27)
[2018-10-16 09:04] LABS: Anion Gap 13 mmol/L (10-20); BUN (Urea Nitrogen) 10 mg/dL (8.4-25.7); Calc. Creatinine Clearance 115 mL/min (70-130); Calcium 9.7 mg/dL (7.8-10.44); Carbon Dioxide 26 mmol/L (23-31); Chloride 106 mmol/L (98-107); Estimated GFR-MDRD Greater than 90; Glucose 91 mg/dL (80-115); Magnesium 2.1 mg/dL (1.6-2.6); Potassium 3.6 mmol/L (3.5-5.1); Sodium 141 mmol/L (136-145)
--- NOTE | 2018-10-16 16:57 | PDOC.HOSPP ---
- Subjective Encounter Date: 10/16/18 Encounter Time: 09:55 Subjective: 63 y.o male with brain tumor s/p resection, seizure disorder, parkinson, dementia and schizophrenia who presented to ER from skilled nursing for evaluation of seizure and AMS and was found to be febrile and tachycardic. Fever has subsided. Mental status has improved to baseline. No new problem. No seizure since admission. - Objective Vital Signs & Weight: Vital Signs (12 hours) Temp Pulse Pulse Resp BP BP BP 10/16/18 11:49 71 140/83 136/80 10/16/18 11:39 98.3 F 80 16 10/16/18 07:40 97.9 F 64 20 143/86 H BP Pulse Ox 10/16/18 11:49 10/16/18 11:39 135/83 92 L 10/16/18 07:40 90 L Weight Weight 170 lb 11.2 oz I&O: 10/15/18 10/16/18 10/17/18 06:59 06:59 06:59 Intake Total 780 1020 300 Balance 780 1020 300 Result Diagrams: 10/15/18 04:17 10/16/18 08:33 ROS - Medication Medications: Active Medications Generic Name Dose Route Start Last Admin Trade Name Freq PRN Reason Stop Dose Admin Enoxaparin Sodium 40 mg 10/13/18 09:00 10/16/18 08:30 Lovenox SC 40 mg 0900 NICK Administration Famotidine 20 mg 10/13/18 09:00 10/16/18 08:29 Pepcid PO Not Given BID NICK Ferrous Sulfate 325 mg 10/13/18 08:00 10/16/18 16:46 Feosol PO Not Given BID- NICK Ceftriaxone Sodium 2 gm/ 100 mls @ 200 mls/hr 10/13/18 06:00 10/16/18 06:11 Sodium Chloride IVPB 100 mls 0600 NCIK Administration Levetiracetam 1,000 mg/ Device 100 mls @ 200 mls/hr 10/13/18 09:00 10/16/18 08:30 IVPB 100 mls BID NICK Administration Vancomycin HCl 1.5 gm/ Sodium 300 mls @ 200 mls/hr 10/13/18 16:00 10/16/18 15 :11 Chloride IVPB 300 mls Q12H NICK Administration Sodium Chloride 10 ml 10/13/18 09:00 10/16/18 08:30 Flush - Normal Saline IVF 10 ml Q12HR NICK Administration - Exam awake alert Eye: anicteric sclera ENT: moist mucosa Neck: supple Heart: RRR Respiratory: no wheezes, no rales, no ronchi Gastrointestinal: soft, non-tender, non-distended, normal bowel sounds Extremities: no cyanosis, no edema Neurological: CN's grossly intact Neurological - other findings: slow mentation. Moving all limbs but weakly. right upper limb seem weaker Hosp A/P (1) Sepsis Code(s): A41.9 - SEPSIS, UNSPECIFIED ORGANISM Status: Acute (2) Seizure disorder Code(s): G40.909 - EPILEPSY, UNSP, NOT INTRACTABLE, WITHOUT STATUS EPILEPTICUS Status: Chronic (3) Acute encephalopathy Code(s): G93.40 - ENCEPHALOPATHY, UNSPECIFIED Status: Acute (4) Hypokalemia Code(s): E87.6 - HYPOKALEMIA Status: Acute (5) Parkinson disease Code(s): G20 - PARKINSON'S DISEASE Status: Acute (6) Alzheimer's dementia Code(s): G30.9 - ALZHEIMER'S DISEASE, UNSPECIFIED Status: Chronic (7) H/O brain tumor Code(s): Z87.898 - PERSONAL HISTORY OF OTHER SPECIFIED CONDITIONS Status: Chronic (8) Physical deconditioning Code(s): R53.81 - OTHER MALAISE Status: Acute (9) Positive blood culture Code(s): R78.81 - BACTEREMIA Status: Acute - Plan Continue IV rocephin and Vanc. Will get Fluoro guided LP for CSF analysis since there is no other source of infection. Repeat blood cultures are no growth so far continue seizure precaution Continue keppra. [place] oral intake.
[2018-10-17] MEDS: Vancomycin HCl 1.5 GM in Sodium Chloride 0.9% 250 ML 300 ML IVPB SCH (04:10)
[2018-10-17] MEDS: cefTRIAXone\\ROCEPHIN 2 GM in Sodium Chloride 0.9% 100 ML IVPB SCH ×2 (06:23→09:00)
[2018-10-17] MEDS: Enoxaparin Sodium 40 MG/0.4 ML SYRINGE SC SCH (08:43)
[2018-10-17] MEDS: Famotidine 20 MG TAB PO SCH ×2 (09:01→21:42)
[2018-10-17] MEDS: Ferrous Sulfate 325 MG TAB PO SCH ×2 (09:01→16:45)
[2018-10-17] MEDS: levETIRAcetam In NaCl (Iso-Os) 1,000 MG in Premix Bag 1 BAG IVPB SCH ×2 (09:03→21:40)
[2018-10-17] MEDS ORDERED: cefTRIAXone\\ROCEPHIN 2 GM in Sodium Chloride 0.9% 100 ML IVPB SCH (10:00)
--- NOTE | 2018-10-17 12:50 | RAD ---
Procedure: Lumbar puncture with fluoroscopic guidance Preprocedure and procedure diagnosis: Need for CSF analysis and inability to obtain CSF; altered ment al status Cloth Classer: Marzena Anesthesia: 10 mL of buffered 1% lidocaine Specimen: 6.5 mL of iodinated contrast Exposure: 1.1 minutes; 223.6 mcg/sq m TECHNIQUE: Prior to the procedure, the risks and benefits of a lumbar puncture were explained to the patient's family who consented fully to the procedure. Document Photographer radiographs were performed. This showed an inferior vena cava filter. No significant degenerative changes are seen. A radiopaque object was used to alvin the site of best entry into the lumbar canal on the skin. This a cheng was then prepped and draped in the usual sterile fashion. Lidocaine was used to anesthetize the skin and soft tissues down central canal. A 22-gauge spinal nee dle was then placed using fluoroscopic guidance into the central canal of the lumbar spine. CSF was able to be obtained. A total of 6.5 mL was obtained which was placed in 4 separate vials labe led 1 through 4. The patient tolerated the procedure well without immediate post procedure complication.
--- NOTE | 2018-10-17 12:59 | PDOC.HOSPP ---
- Subjective Encounter Date: 10/17/18 Encounter Time: 12:58 Subjective: 63 y.o male with brain tumor s/p resection, seizure disorder, parkinson, dementia and schizophrenia who presented to ER from [facility] for evaluation of seizure and AMS and was found to be febrile and tachycardic. Fever has subsided. Mental status has improved to baseline. No new problem. No seizure since admission. Had LP earlier today. - Objective Vital Signs & Weight: Vital Signs (12 hours) Temp Pulse Resp BP Pulse Ox 10/17/18 11:56 97.9 F 71 18 110/74 96 10/17/18 08:52 96 10/17/18 07:55 98.3 F 67 18 140/81 97 10/17/18 04:00 98.5 F 69 16 127/71 93 L Weight Weight 170 lb 11.2 oz I&O: 10/16/18 10/17/18 10/18/18 06:59 06:59 06:59 Intake Total 1020 1360 Balance 1020 1360 Result Diagrams: 10/15/18 04:17 10/16/18 08:33 ROS - Medication Medications: Active Medications Generic Name Dose Route Start Last Admin Trade Name Freq PRN Reason Stop Dose Admin Enoxaparin Sodium 40 mg 10/13/18 09:00 10/17/18 08:43 Lovenox SC Not Given 09 NICK Famotidine 20 mg 10/13/18 09:00 10/17/18 09:01 Pepcid PO 20 mg BID NICK Administration Ferrous Sulfate 325 mg 10/13/18 08:00 10/17/18 09:01 Feosol PO 325 mg BID-WM NICK Administration Levetiracetam 1,000 mg/ Device 100 mls @ 200 mls/hr 10/13/18 09:00 10/17/18 09:03 IVPB 100 mls BID NICK Administration Vancomycin HCl 1.5 gm/ Sodium 300 mls @ 200 mls/hr 10/13/18 16:00 10/17/18 04 :10 Chloride IVPB 300 mls Q12H NICK Administration Ceftriaxone Sodium 2 gm/ 100 mls @ 200 mls/hr 10/17/18 10:00 10/17/18 10:35 Sodium Chloride IVPB 100 mls 1000 NICK Administration Sodium Chloride 10 ml 10/13/18 09:00 10/17/18 09:03 Flush - Normal Saline IVF 10 ml Q12HR NICK Administration - Exam awake alert General - other findings: slow mentation Eye: anicteric sclera ENT: normocephalic atraumatic, moist mucosa Neck: supple, no JVD Heart: RRR Respiratory: no wheezes (Fair air entry bilaterally), no ronchi Gastrointestinal: soft, non-tender, non-distended, normal bowel sounds Extremities: no cyanosis, no edema Neurological: no new deficit (awake and moving all limbs. Slow mentation) Hosp A/P (1) Sepsis Code(s): A41.9 - SEPSIS, UNSPECIFIED ORGANISM Status: Acute (2) Seizure disorder Code(s): G40.909 - EPILEPSY, UNSP, NOT INTRACTABLE, WITHOUT STATUS EPILEPTICUS Status: Chronic (3) Acute encephalopathy Code(s): G93.40 - ENCEPHALOPATHY, UNSPECIFIED Status: Acute (4) Hypokalemia Code(s): E87.6 - HYPOKALEMIA Status: Acute (5) Parkinson disease Code(s): G20 - PARKINSON'S DISEASE Status: Acute (6) Alzheimer's dementia Code(s): G30.9 - ALZHEIMER'S DISEASE, UNSPECIFIED Status: Chronic (7) H/O brain tumor Code(s): Z87.898 - PERSONAL HISTORY OF OTHER SPECIFIED CONDITIONS Status: Chronic (8) Physical deconditioning Code(s): R53.81 - OTHER MALAISE Status: Acute (9) Positive blood culture Code(s): R78.81 - BACTEREMIA Status: Acute - Plan Continue IV rocephin and Vanc. Await CSF analysis. Source of infection remained unclear continue seizure precaution Continue keppra. [place] oral intake.
[2018-10-17 13:19] LABS: CSF, Glucose 63 mg/dl (40-70)
[2018-10-17 13:27] LABS: Color Of CSF Supernatant COLORLESS (Colorless); Tube # 2; Unspun CSF Color COLORLESS (Colorless)
[2018-10-17 13:39] LABS: CSF, Protein 241 mg/dL (15-40)
[2018-10-17 13:50] LABS: CSF Source CSF; Clarity Clear (Clear); Tube # 4; WBC/NonHematics Count - Manual 18 /cumm (0-5)
[2018-10-17 13:51] LABS: RBC Count - Manual 299 /cumm (None Seen)
[2018-10-17 15:17] LABS: Cell Count Non Hematic 30 %; Eosinophils 1 %; Lymphocytes 58 %; Segmented Neutrophils 11 %
[2018-10-17 15:18] LABS: Vancomycin, Trough 21.1 ug/mL
[2018-10-17] MEDS ORDERED: Vancomycin HCl 1.25 GM in Sodium Chloride 0.9% 250 ML 250 ML IVPB SCH (16:00)
--- NOTE | 2018-10-17 20:25 | CON ---
DATE OF CONSULTATION: 10/17/2018 REASON FOR CONSULTATION: Fever. HISTORY OF PRESENT ILLNESS: A 63-year-old, with history of schizophrenia, dementia, seizure disorder, who lives in a halfway and was sent over there because of change in mental status, possible postictal state. He was given Versed, Keppra, Cerebyx, Ativan, and transferred over. Initial findings; temperature 101.5, pulse 92, respirations 20, O2 saturation 97, and the exam was fairly benign except that he was not able to interact due to his altered mental status, possible postictal state. Chest x-ray with no acute findings. Initial white cell count 9.8, and 85% neutrophils. The creatinine was normal. Liver profile normal. Albumin 4.3. Urinalysis with 0 to 3 wbc's. One set of blood cultures out of two with 3 different Streptococci, probably contaminant. Repeat two sets of blood cultures were negative. In the hospital, he has remained afebrile after the initial temperature elevation of 101.5. Currently, Mr. Shelton is awake. He is eating dinner. He is not answering questions, although according to the nurse, he did before. I cannot review his subjective information at this point. There have been no reported respiratory symptoms. No obvious aspiration. No diarrhea, and he is voiding in the diaper. PAST MEDICAL HISTORY: Includes schizophrenia, dementia, seizure disorder, Parkinson disease, prior CVA. SURGICAL HISTORY: DIE STAMPER shunt, hernia repair, brain tumor resection, tracheostomy. SOCIAL HISTORY: retirement resident. Never smoker. ALLERGIES: DEPAKOTE. FAMILY HISTORY: Noncontributory. MEDICATIONS: 1. Cogentin. 2. Cymbalta. 3. Lamotrigine. 4. Seroquel. 5. Risperidone. 6. Trazodone. 7. Keppra. Current medications; 1. Tylenol. 2. Dulcolax. 3. Ceftriaxone. 4. Ferrous sulfate. 5. Keppra. 6. Loperamide. 7. Ondansetron. 8. Vancomycin. PHYSICAL EXAMINATION: VITAL SIGNS: He has been afebrile. Other vital signs are essentially normal. O2 saturation 96. SKIN: The patient has a peripheral IV access, and he is voiding in the diaper. No lymphadenopathy. HEENT: Temporal wasting. Ocular movements are conjugate. Oral cavity with numerous missing teeth, quite a bit of gum disease. NECK: Supple. No jugular vein distention. LUNGS: Symmetric, clear breath sounds. HEART: S1 and S2, regular rate without murmurs. ABDOMEN: Soft, not distended or tender. No ascites. No bladder distention. MUSCULOSKELETAL: No joint inflammatory activity. Plantar responses are flexor. No clonus. Strength seems to be preserved. LABORATORY DATA: White cell count 6.2, hemoglobin 13, MCV 94, platelets 222, with 58% neutrophils. CK was not done. Last CK is from June 2018. CSF was done and it showed 18 WBCs and 299 RBCs in the fourth tube, probably contaminant from accidental puncture of one of the venous plexus around the CSF subarachnoid area. Glucose was 63, and protein was 241, which is elevated. This could be secondary to admixture again from blood. Chest x-ray on this admission with no acute infiltrate. Multiple right rib fractures, which are remote probably. ASSESSMENT: 1. Schizophrenia/prior brain tumor and dementia or cognitive disorder. 2. Seizure activity reported with postictal phenomenon including low-grade fever. 3. Abnormalities detected on CSF, probably related to admixture of venous blood due to accidental puncture of one of the veins in the plexus around the CSF subarachnoid space. In other words, this is contamination of the sample by blood rather than true CSF abnormalities. 4. Bacteremia. DISCUSSION: The bacterial organisms isolated from one set probably reflect contamination of the sample rather than true bacteremia. The CSF findings are probably accidental venous blood mixing as well. I would recommend discontinuation of antimicrobial therapy, the low-grade temperature elevation and other manifestations are probably secondary to postictal phenomena. Job ID: [id number] [facility]
[2018-10-18] MEDS: levETIRAcetam In NaCl (Iso-Os) 1,000 MG in Premix Bag 1 BAG IVPB SCH (09:19)
[2018-10-18] MEDS: Ferrous Sulfate 325 MG TAB PO SCH (09:20)
[2018-10-18] MEDS: Famotidine 20 MG TAB PO SCH (09:20)
[2018-10-18] MEDS: Enoxaparin Sodium 40 MG/0.4 ML SYRINGE SC SCH (09:20)
--- NOTE | 2018-10-18 10:56 | PDOC.EVN ---
Event Note - Event Note Event Note: Seen and examined. For Disharge back to residential. Discharge summary dictated. #[id number]
--- NOTE | 2018-10-18 11:46 | DIS ---
DATE OF ADMISSION: 10/13/2018 DATE OF DISCHARGE: 10/18/2018 PRIMARY CARE PHYSICIAN: Monica Zhang MD DISCHARGE DIAGNOSES: 1. Acute encephalopathy due to medication, seizure and possible infection. 2. Seizure disorder. 3. Fever. 4. Hypokalemia. 5. Physical deconditioning. 6. Positive blood culture considered contaminant. 7. Dementia. 8. History of brain tumor. 9. Parkinson disease. 10. Systemic inflammatory response syndrome. PROCEDURE PERFORMED: Lumbar puncture. CONSULTS: 1. Neurology. 2. Infectious disease. HOSPITAL COURSE: A 63-year-old male patient with known history of brain tumor status post resection, hydrocephalus status post VETERINARY PHARMACOLOGIST shunt placement, seizure disorder, Parkinson's, dementia, and schizophrenia, who was brought to the ER from long term for evaluation of seizure and mental status changes. The patient initially was brought in due to seizure and received benzodiazepine, such that by the time he was transferred over here, he was somnolent. He also was found to have fever and tachycardia, concerning for infectious process. The patient was started on broad-spectrum antibiotics as well as anticonvulsants. Psychotropic medications and sedatives were discontinued and mental status improved to baseline. Neurologic consult was obtained, and it was felt that the acute mental status change was related to postictal state as well as use of sedatives and discontinuation of sedatives was recommended while anticonvulsants were continued. Initial blood cultures were positive for gram-positive cocci, but further identification grew 3 organisms including Strep mitis oralis or alpha Strep not Strep pneumonia and alpha strep not pneumonia #2. This was felt to be a contaminant, and repeat blood cultures were obtained, which had no growth. Chest x-ray was unremarkable as well as urinalysis, hence no clear source of infection. At this point, meningitis was considered given history of VETERINARY PHARMACOLOGIST shunt, hence lumbar puncture was obtained and this again was unremarkable. Infectious Disease consult was obtained, and he recommended discontinuation of antibiotics as the fever was due to the seizure. Antibiotics were discontinued, and the patient remained stable and was subsequently discharged back to the long term. PHYSICAL EXAMINATION: VITAL SIGNS: Temperature 98.7, pulse 72, respiratory rate 16, SpO2 of 92% on room air, blood pressure 111/67. GENERAL: Male patient in no obvious distress. Afebrile. Anicteric. Acyanotic. HEENT: Normocephalic, atraumatic. Oral mucosa is moist. RESPIRATORY: Fair air entry bilaterally with no obvious crackle or rhonchi or use of accessory muscles. CARDIOVASCULAR: Regular rhythm and rate with normal heart sounds 1 and 2. GI: Full, soft, nontender, nondistended with normal bowel sounds. EXTREMITIES: Grossly normal looking atraumatic with no edema or erythema. OUTREACH NURSE: The patient is awake. Has slow mentation. Obeys simple commands. Moves all extremities. DISCHARGE DISPOSITION: correction. DISCHARGE CONDITION: Improved to baseline. DISCHARGE MEDICATIONS: 1. Dulcolax suppository 10 mg per rectum p.r.n. daily. 2. Cymbalta 30 mg p.o. daily in the morning. 3. Ferrous sulfate 325 mg p.o. b.i.d. 4. Motrin 600 mg q.6 p.r.n. for pain. 5. DuoNeb q.i.d. p.r.n. 6. Lamotrigine 200 mg p.o. b.i.d. 7. Lorazepam 1 mg p.o. q.4 p.r.n. 8. Risperidone 4 mg p.o. b.i.d. 9. Trazodone 50 mg q.p.m. 10. Keppra 1000 mg p.o. b.i.d. 11. Senokot X two tablets p.o. b.i.d. p.r.n. for constipation. TIME SPENT: This discharge took more than 36 minutes. Job ID: [id number]
[2018-10-18 12:31] VITALS: BP 121/82
[2018-10-18 13:29] VITALS: TEMP 98.9
== END 2018-10-18 14:20 | DRG 100 ==
LOC: ERS 01:33 → 2NO 03:43 → 2SE 10-14 11:35
PROVIDERS: ADMIT Hospitalist; ATTEND Hospitalist
PROC: 009U3ZX Drainage of Spinal Canal, Percutaneous Approach, Diagnostic (ICD-10-PCS; principal; 2018-10-17)
PROC: B01BYZZ Fluoroscopy of Spinal Cord using Other Contrast (ICD-10-PCS; 2018-10-17)
DX: G40.909 Epilepsy, unspecified, not intractable, without status epilepticus (principal); G92 Toxic encephalopathy; R65.10 Systemic inflammatory response syndrome (SIRS) of non-infectious origin without acute organ dysfunction; Z66 Do not resuscitate; F20.9 Schizophrenia, unspecified; G30.9 Alzheimer's disease, unspecified; F02.80 Dementia in other diseases classified elsewhere, unspecified severity, without behavioral disturbance, psychotic disturbance, mood disturbance, and anxiety; D64.9 Anemia, unspecified; G20 Parkinson's disease; E87.6 Hypokalemia; T42.75XA Adverse effect of unspecified antiepileptic and sedative-hypnotic drugs, initial encounter; Z86.73 Personal history of transient ischemic attack (TIA), and cerebral infarction without residual deficits; Z79.899 Other long term (current) drug therapy
CPT/HCPCS: 36415; 51701; 62270; 71045; 80048; 80053; 80177; 80202; 80500; 81003; 81015; 82945; 83605; 83735; 84145; 84157; 85025; 85060; 87040; 87070; 87077; 87086; 87149; 87205; 89051; 93005; 96361; 96365; 96367; J0696; J1650; J1953; J2543; J3370; J3480; J3490; J7050

== ENCOUNTER 2018-12-12 06:47 | Inpatient (IN) | payer MEDICARE, MEDICAID ==
[2018-12-12 07:09] LABS: #Lymphocytes 0.9 thou/uL (1.20-3.40); #Monocytes 0.6 thou/uL (0.11-0.59); #Neutrophils 6.7 thou/uL (1.40-6.50); %Basophils 0.2 % (0.0-1.0); %Eosinophils 0.4 % (0.0-10.0); %Lymphocytes 10.7 % (21.0-51.0); %Monocytes 7.8 % (0.0-10.0); %Neutrophils 80.9 % (42.0-75.0); Hemoglobin 14.8 g/dL (14.0-18.0); Mean Corpuscular HGB CONC 34.1 g/dL (32.0-36.0); Mean Corpuscular Hemoglobin 32.1 pg (27.0-31.0); Mean Platelet Volume 6.6 fL (7.4-10.4); Platelet Count 218 thou/uL (130-400); RBC Distribution Width 12.3 % (11.5-14.5); Red Blood Cell (RBC) Count 4.62 mill/uL (4.70-6.10); White Blood Cell (WBC) Count 8.2 thou/uL (4.8-10.8)
[2018-12-12 07:26] LABS: ALT (SGPT) 12 U/L (8-55); AST (SGOT) 17 U/L (5-34); Albumin 4.2 g/dL (3.4-4.8); Alkaline Phosphatase 48 U/L (40-110); Anion Gap 15 mmol/L (10-20); BUN (Urea Nitrogen) 19 mg/dL (8.4-25.7); Bilirubin, Total 0.5 mg/dL (0.2-1.2); Calc. Creatinine Clearance 0 mL/min (70-130); Calcium 9.7 mg/dL (7.8-10.44); Carbon Dioxide 23 mmol/L (23-31); Chloride 104 mmol/L (98-107); Estimated GFR-MDRD 82; Globulin 3.2 g/dL (2.4-3.5); Glucose 105 mg/dL (80-115); Potassium 3.7 mmol/L (3.5-5.1); Protein, Total 7.4 g/dL (5.8-8.1); Sodium 138 mmol/L (136-145)
[2018-12-12] MEDS ORDERED: Lorazepam 2 MG/ML VIAL ONE (07:33)
[2018-12-12 07:35] LABS: INR-International Normal Ratio 1.1; PTT 29.7 SEC (22.9-36.1); Prothrombin Time 14.2 SEC (12.0-14.7)
[2018-12-12] MEDS ORDERED: levETIRAcetam In NaCl (Iso-Os) 1,000 MG in Premix Bag 1 BAG IVPB SCH (07:45)
[2018-12-12 08:07] LABS: Bacteria/HPF None Seen HPF (None Seen); Bilirubin Negative (Negative); Blood, Urine 2+ (Negative); Clarity Clear (Clear); Glucose, Urine (Dipstick) Normal (Negative); Leukocyte Negative Leu/uL (Negative); Nitrite Negative (Negative); Protein, Urine (Dipstick) 20 mg/dL (Neg-Trace); Squamous Epithelial None Seen HPF (0-3); Urobilinogen Normal mg/dL (Less than 2); WBC/HPF 0-3 HPF (0-3)
--- NOTE | 2018-12-12 09:11 | RAD ---
EXAM: CHEST ONE VIEW HISTORY: Trauma/injury after fall. COMPARISON: 10/13/2018. FINDINGS: Cardiac silhouette and pulmonary vasculature are within normal limits. The lungs are clear, no pneumo thorax or pleural effusion is seen. Postsurgical changes distal right clavicle are noted with a superior plate and multiple screws present. The distal right clavicle is elevated superiorly with res pect to the acromion which is stable when compared to a study on 06/21/2018. Remote bilateral rib fractures are present. A left-sided ventriculoperitoneal shunt catheter is noted in place which cours es into the upper abdomen. IMPRESSION: 1. No acute cardiopulmonary process. 2. Remote bilateral rib fractures with postsurgical changes distal right clavicle. Acromioclavicular joint separation on the right is seen but stable compared to study on 06/21/2018.
--- NOTE | 2018-12-12 09:13 | CT ---
PRELIMINARY REPORT/[facility]/EMERGENCY AFTER HOURS PROCEDURE: PROCEDURE INFORMATION: Exam: CT Head Without Contrast Exam date and time: 12/12/2018 7:01 AM Clinical history: 63 years old, male; Injury or trauma; Initial encounter; Abrasion; Forehead; Injury details: Level 2 trauma, fall from standing. ; Prior surgery; Surgery date: 6+ months; Surgery type: Shunt, history of brain tumor. TECHNIQUE: Imaging protocol: Computed tomography of the head without contrast. COMPARISON: No relevant prior studies available. FINDINGS: Brain: No acute intracerebral abnormality or injury. Chronic encephalomalacia is seen in the left frontotemporal lobes, presumably post brain tumor surgery. Ventricles: A ventriculostomy shunt catheter is present with the distal tip in the left lateral ventr icle occipital horn. Bones/joints: See Soft Tissues Finding. Sinuses: Visualized sinuses are unremarkable. No fluid levels. Mastoid air cells: Visualized mastoid air cells are well aerated. Soft tissues: Soft tissue swelling and a small scalp contusion are seen in the right occipital region on image 20 of series 3, with no underlying calvarial fractures identified. Prior left frontal craniotom y with thai holes in the left frontoparietal and left occipital regions. IMPRESSION: 1. Soft tissue swelling and a small scalp contusion are seen in the right occipital region on image 2 0 of series 3, with no underlying calvarial fractures identified. Prior left frontal craniotomy with bu rr holes in the left frontoparietal and left occipital regions. 2. No acute intracerebral abnormality or injury. 3. A ventriculostomy shunt catheter is present with the distal tip in the left lateral ventricle occi pital horn. 4. Chronic encephalomalacia is seen in the left frontotemporal lobes, presumably post brain tumor surgery. Thank you for allowing us to participate in the care of your patient. Dictated and Authenticated by: Tyrone Marshall MD 12/12/2018 7:26 AM Central Time ([place] & [place]) FINAL REPORT: EMERGENCY AFTER HOURS NONCONTRAST CT HEAD: HISTORY: Level 2 trauma. Injury after a fall. History of a brain tumor. COMPARISON: 10/12/2018. IMPRESSION: 1. No acute intracranial abnormality is demonstrated. 2. Right parietal occipital scalp hematoma without evidence of an underlying calvarial fracture. 3. Ventriculoperitoneal shunt catheter entering via a left parietal occipital approach with tip uncha nged in position. 4. Stable area of encephalomalacia left frontal lobe with evidence of prior left frontal craniotomy d efect. 5. Stable dystrophic appearing calcifications again seen along the margin of the left lateral ventric le superiorly. 6. Aside from right parietal occipital scalp soft tissue swelling, CT of the head is overall stable w hen compared to the prior exam. 7. Findings are in agreement with the preliminary report by [facility]. Transcribed Date/Time: 12/12/2018 10:07 AM
--- NOTE | 2018-12-12 09:16 | CT ---
PRELIMINARY REPORT/[facility]/EMERGENCY AFTER HOURS PROCEDURE: PROCEDURE INFORMATION: Exam: CT Cervical Spine Without Contrast Exam date and time: 12/12/2018 7:01 AM Clinical history: 63 years old, male; Injury or trauma; Injury details: Level 2 trauma, fall from standing TECHNIQUE: Imaging protocol: Computed tomography images of the cervical spine without contrast. COMPARISON: No relevant prior studies available. FINDINGS: Vertebrae: The cervical spine alignment is normal. Chronic degenerative vertebral body endplate osteophytosis with diminished disc height and anterior longitudinal ligament calcification is seen at levels C3-C7. Mild central spinal stenosis is present at C5/C6 secondary to posterior vertebral body endplate osteophytosis. Discs/Spinal canal/Neural foramina: Chronic degenerative bony neuroforaminal stenosis secondary to uncal joint and posterior facet joint arthropathy, bilaterally at C5/C6. Other bones/joints: No acute fractures. Soft tissues: Unremarkable prevertebral and posterior paraspinal soft tissues. Lungs: Lung apices are normal. IMPRESSION: 1. No acute fractures. 2. The cervical spine alignment is normal. 3. Chronic degenerative vertebral body endplate osteophytosis with diminished disc height and anterior longitudinal ligament calcification is seen at levels C3-C7. 4. Chronic degenerative bony neuroforaminal stenosis secondary to uncal joint and posterior facet joint arthropathy, bilaterally at C5/C6. 5. Mild central spinal stenosis is present at C5/C6 secondary to posterior vertebral body endplate osteophytosis. Thank you for allowing us to participate in the care of your patient. Dictated and Authenticated by: Tyrone Marshall MD 12/12/2018 7:47 AM Central Time ([place] & [place]) EMERGENT AFTER-HOURS NONCONTRAST CT CERVICAL SPINE: HISTORY: Level 2 trauma. Injury after a fall. COMPARISON: 10.12.2018. TECHNIQUE: Contiguous axial CT images are obtained through the cervical spine from the skull base to the level o f the T1 vertebral body. Sagittal and coronal reformatted images are provided. IMPRESSION: 1. Mild degenerative changes in the cervical spine, but no fracture or subluxation is seen. CT cervic al spine is similar to prior exam. 2. Findings are in agreement with the preliminary report by [facility]. Transcribed Date/Time: 12/12/2018 10:03 AM
[2018-12-12 11:18] LABS: Lactic Acid 0.7 mmol/L (0.5-2.2)
[2018-12-12] MEDS ORDERED: Ondansetron ODT 4 MG TAB SL PRN (14:43)
[2018-12-12] MEDS ORDERED: Acetaminophen 325 MG TAB PO PRN (14:43)
[2018-12-12] MEDS ORDERED: Ondansetron PF 4 MG/2 ML Vial IVP PRN (14:43)
[2018-12-12 16:00] VITALS: BMI 20.9
[2018-12-12] MEDS ORDERED: Bisacodyl 10 MG SUPP PR PRN (16:09)
[2018-12-12] MEDS ORDERED: Lorazepam 1 MG TAB PO PRN (16:09)
[2018-12-12] MEDS ORDERED: Senokot S 8.6-50 MG TAB PO PRN (16:09)
[2018-12-12] MEDS ORDERED: Ibuprofen 600 MG TAB PO PRN (16:09)
--- NOTE | 2018-12-12 16:30 | HP ---
CHIEF COMPLAINT: Recurrent seizures, status post head trauma and fall. HISTORY OF PRESENT ILLNESS: The patient is a 63-year-old long term resident , who was brought by the helicopter from [place], where the patient was found having seizures and chest pain. This was status post fall. Apparently, he had tonic-clonic seizures in the past and this was most likely related to brain tumor that he had, which was removed, but there was no seizure activity noted per EMS/flight crew. Apparently, he had some right hemiparesis today, which was new for the patient. PAST MEDICAL HISTORY: Positive for, 1. Parkinson disease. 2. Brain tumor. 3. Dementia. 4. Chronic normocytic anemia. 5. History of CVA. PAST SURGICAL HISTORY: 1. HOSTED SERVICES ANALYST shunt. 2. Hernia repair. 3. Resection of brain tumor. 4. Tracheostomy with subsequent removal. PAST PSYCHIATRIC HISTORY: Positive for schizophrenia. SOCIAL HISTORY: He lives at the long term. He had do not resuscitate status while in the long term. He does not have any history of tobacco use, alcohol use, or use of any illicit drugs. ALLERGIES: DEPAKOTE. CURRENT MEDICATIONS: 1. Cymbalta 30 mg once a day. 2. Trazodone 50 mg once a day. 3. Ferrous sulfate 325 mg once a day. 4. Lamotrigine 200 mg twice a day. 5. Keppra 1000 twice a day. 6. Risperdal 4 mg twice a day. 7. Docusate sodium 100 mg once a day. FAMILY HISTORY: Not obtainable. The patient does not tell me any information about his parents. He just says that both of them are . REVIEW OF SYSTEMS: Only positive symptoms mentioned in HPI. The rest of 14 systems' symptoms are negative. PHYSICAL EXAMINATION: VITAL SIGNS: Blood pressure is 123/79, temperature is 99.6, pulse is 76, respiratory rate is 16, O2 saturation is 95% on 0.5 L by nasal cannula. GENERAL: He is chronically ill-appearing patient. His speech is very slow and sporadic, and he seems to be somewhat confused, but we do not know his baseline. HEENT: His pupils are responding to light properly. They are normal size. Sclerae are nonicteric. He has a laceration of the right occipital area, which is not bleeding and that is more like an abrasion. Oral mucosa is slightly dry. Poor oral hygiene. NECK: Supple. LUNGS: Clear. HEART: S1 and S2 normal. No S3. No S4. ABDOMEN: Soft, nontender, and nondistended. Bowel sounds are present. No organomegaly. EXTREMITIES: No clubbing, cyanosis, or edema. He has good pulses on tibialis posterior arteries and less palpable pulses on dorsalis pedis arteries, similar bilaterally. NEUROLOGIC: He is very slow to response. He responds with simple answers, one or two words and it is only sporadically, but he is able to move his all 4 extremities. He has some mild difference in terms of motor function in the right upper extremity. Ygbvtw-ye-zvon testing is done relatively well. LABORATORY DATA: White count of 8.2, hemoglobin 14.8, hematocrit 43.4, platelet count 218. INR is 1.1 and PT is 14.2. Normal electrolytes. Normal kidney function. Lactic acid 2.8, then repeat is 0.7. The rest of big chemistry panel is within normal limits. Troponin I is less than 0.010 and TSH third generation is 1.47. Urinalysis showed 10 of ketones, 2+ blood, and 4 to 6 rbc's. A chest x- ray from today showed no acute abnormalities. Cervical spine showed some degenerative changes bilaterally at C5-C6 and anterior longitudinal ligament calcification at the level of C3 through C5. There is no acute fracture and there is mild central spinal stenosis at C3-C5 level secondary to posterior vertebral body endplate osteophytosis. Also, his CT of the brain was done and this was personally reviewed by me, which showed soft tissue swelling and small scab contusion in the right occipital region. Also, prior left frontal craniotomy with thai holes in the left frontoparietal and left occipital regions. No acute intracerebral abnormality or injury. Also, a ventriculostomy shunt catheter is present with the distal tip in the left lateral ventricle occipital horn. Also, there is a chronic encephalomalacia seen in the left frontotemporal lobes, presumably post brain tumor surgery. EKG showed normal sinus rhythm with ventricular rate of 68 beats per minute. This was personally reviewed by me. IMPRESSION AND PLAN: 1. Recurrent seizures. Trigger is unknown. Also, he had seizures in the emergency room. He was given Ativan, intravenous Keppra, and 1 L of normal saline. We will get Neurology involved. 2. History of schizophrenia. 3. Parkinson disease. 4. History of major depression disorder. 5. Dementia. 6. Chronic anemia. 7. History of epilepsy. 8. History of brain tumor, status post removal. 9. Chest pain. This will be addressed with additional 2 sets of troponin level and electrocardiogram does not show any evidence of acute ischemia or acute cardiac problem. 10. Head trauma, status post fall, but laceration is minor and it does not require any surgical intervention at this point. We will continue his Keppra in 1000 mg twice a day. Continue his other long term medications. We will do DVT prophylaxis. We will order MRI of the brain with and without contrast. Job ID: [id number] [facility]
[2018-12-12] MEDS: Sodium Chloride 0.9% 1,000 ML IV SCH (16:36)
[2018-12-12] MEDS: risperiDONE 1 MG TAB PO SCH ×2 (21:35→21:49)
[2018-12-12] MEDS: traZODone HCl 50 MG TAB PO SCH ×2 (21:35→21:49)
[2018-12-12] MEDS: lamoTRIgine 100 MG TAB PO SCH ×2 (21:35→21:49)
[2018-12-12] MEDS: Ferrous Sulfate 325 MG TAB PO SCH ×2 (21:36→21:48)
[2018-12-12] MEDS: levETIRAcetam In NaCl (Iso-Os) 1,000 MG in Premix Bag 1 BAG IVPB SCH (21:37)
[2018-12-13 04:51] LABS: #Eosinphils 0.1 thou/uL (0.0-0.7); #Lymphocytes 1.4 thou/uL (1.20-3.40); #Monocytes 0.7 thou/uL (0.11-0.59); #Neutrophils 3.3 thou/uL (1.40-6.50); %Basophils 0.6 % (0.0-1.0); %Eosinophils 1.8 % (0.0-10.0); %Lymphocytes 25.6 % (21.0-51.0); Hemoglobin 12.2 g/dL (14.0-18.0); Mean Corpuscular HGB CONC 34.4 g/dL (32.0-36.0); Mean Corpuscular Hemoglobin 32.7 pg (27.0-31.0); Mean Corpuscular Volume 94.9 fL (78.0-98.0); Mean Platelet Volume 6.4 fL (7.4-10.4); Platelet Count 210 thou/uL (130-400); RBC Distribution Width 12.1 % (11.5-14.5); Red Blood Cell (RBC) Count 3.73 mill/uL (4.70-6.10); White Blood Cell (WBC) Count 5.6 thou/uL (4.8-10.8)
[2018-12-13 05:11] LABS: Anion Gap 9 mmol/L (10-20); BUN (Urea Nitrogen) 17 mg/dL (8.4-25.7); Calc. Creatinine Clearance 100 mL/min (70-130); Calcium 8.8 mg/dL (7.8-10.44); Carbon Dioxide 28 mmol/L (23-31); Chloride 104 mmol/L (98-107); Estimated GFR-MDRD Greater than 90; Glucose 84 mg/dL (80-115); Potassium 3.4 mmol/L (3.5-5.1); Sodium 138 mmol/L (136-145)
[2018-12-13] MEDS: Sodium Chloride 0.9% 1,000 ML IV SCH ×2 (06:41→17:28)
[2018-12-13] MEDS ORDERED: Potassium Chloride 20 MEQ TAB PO SCH (07:15)
[2018-12-13] MEDS ORDERED: FLU VACC QS2019-20(6MOS UP)/PF 60 MCG/0.5 ML SYRINGE IM ONE (09:00)
[2018-12-13] MEDS: levETIRAcetam In NaCl (Iso-Os) 1,000 MG in Premix Bag 1 BAG IVPB SCH (10:21)
[2018-12-13] MEDS: Enoxaparin Sodium 40 MG/0.4 ML SYRINGE SC SCH (10:21)
[2018-12-13] MEDS: DULoxetine 30 MG CAP PO SCH (11:01)
[2018-12-13] MEDS: Ferrous Sulfate 325 MG TAB PO SCH ×2 (11:01→21:58)
[2018-12-13] MEDS: risperiDONE 1 MG TAB PO SCH ×2 (11:02→21:58)
[2018-12-13] MEDS: lamoTRIgine 100 MG TAB PO SCH ×2 (11:02→21:58)
--- NOTE | 2018-12-13 13:49 | PRG ---
DATE OF SERVICE: SUBJECTIVE: The patient is seen and examined at the bedside. He is much more awake and alert this morning, although he is not very talkative. OBJECTIVE: VITAL SIGNS: Blood pressure is 122/76, pulse is 61, temperature is 98.9, respirations 18, O2 saturation is 100% on nasal cannula. GENERAL: He tries to follow my commands. HEENT: His sclerae are nonicteric. Conjunctivae pinkish. Oral mucosa is moist. NECK: Supple. LUNGS: Clear. HEART: S1, S2 normal. ABDOMEN: Soft, nontender. EXTREMITIES: No clubbing, cyanosis, or edema. NEUROLOGIC: He tries to follow my commands, but he is slow in response. He moves his all 4 extremities. LABORATORY DATA: White count of 5.6, hemoglobin 12.2, hematocrit 35.3, platelet count is 210. Sodium of 138, potassium 3.4, chloride 104, CO2 of 28, BUN 17, creatinine 0.76, glucose 84, calcium 8.8. Microbiology; blood cultures negative. Urine culture negative. IMPRESSION: 1. Recurrent seizures. 2. History of schizophrenia. 3. Parkinson disease. 4. History of major depression. 5. Dementia. 6. Chronic anemia. 7. History of epilepsy. 8. History of brain tumor, status post surgical removal. 9. Chest pain with negative workup so far. 10. Head trauma, not require any surgical intervention. PLAN: The patient is on Keppra. We are waiting for Neurology to see the patient. The order for MRI was canceled by neurologist and we are going to reconcile his home medications and stop his IV fluids if he is able to take fluids orally and he should be able to go back to the detention as soon as he is cleared by Neurology. Job ID: [id number]
[2018-12-13] MEDS: levETIRAcetam In NaCl (Iso-Os) 1,500 MG in Premix Bag 1 BAG IVPB SCH (21:56)
[2018-12-13] MEDS: traZODone HCl 50 MG TAB PO SCH (21:58)
--- NOTE | 2018-12-13 23:57 | CON ---
DATE OF CONSULTATION: 12/13/2018 CONSULTING PHYSICIAN: Hospitalist Service. IMPRESSION: 1. Recurrent seizures. 2. History of brain tumor with resection in the left parieto-frontal lobe. 3. History of schizophrenia and depression. PLAN: 1. Increase his Keppra to 1500 mg twice a day. 2. Continue Lamictal at current dosing. HISTORY OF PRESENT ILLNESS: Mr. Shelton is a 63-year-old man, is a [facility] resident. He has a known history of seizures. He apparently had a breakthrough seizure and was brought to the hospital. He had a CT scan of the brain, which showed evidence of FUR MIXER OPERATOR shunt and a large area of encephalomalacia involving the left frontoparietal region. There is no acute hemorrhage present. Laboratory studies were otherwise unremarkable. He has been afebrile since admission. He has not had any further seizure activity. PAST MEDICAL HISTORY: As listed above. ALLERGIES: DEPAKOTE. MEDICATIONS: Medication list was reviewed. SOCIAL HISTORY: He does not smoke or drink. FAMILY HISTORY: Unknown. REVIEW OF SYSTEMS: Not obtainable due to his limited cooperativeness. PHYSICAL EXAMINATION: GENERAL: He is a thin elderly man, lying in bed, in no acute distress. VITAL SIGNS: Blood pressure 128/77, pulse 65, respirations 18, and temperature 98.5. HEENT: Pupils are equal. Conjunctivae are clear. Oropharynx is clear. NECK: No lymphadenopathy. EXTREMITIES: No cyanosis or edema. NEUROLOGIC: He is alert and verbal. He pretty much told me to leave him alone and to send him home. Could not get him to follow any commands, otherwise. He denies having any other ongoing complaints. His face appears symmetric and roughly the same. Strength in both upper extremities right side a bit comparatively. Gait is not testable. No abnormal movements are seen. SUMMARY: A 63-year-old man with recurrent seizure. I would go ahead and bump up his Keppra dose. I would be happy to follow up with him as an outpatient if needed. Job ID: [id number]
[2018-12-14] MEDS: Sodium Chloride 0.9% 1,000 ML IV SCH ×2 (01:01→15:32)
[2018-12-14 08:07] LABS: Anion Gap 12 mmol/L (10-20); BUN (Urea Nitrogen) 18 mg/dL (8.4-25.7); Calc. Creatinine Clearance 109 mL/min (70-130); Calcium 8.4 mg/dL (7.8-10.44); Carbon Dioxide 25 mmol/L (23-31); Chloride 103 mmol/L (98-107); Estimated GFR-MDRD Greater than 90; Glucose 76 mg/dL (80-115); Potassium 3.6 mmol/L (3.5-5.1); Sodium 136 mmol/L (136-145)
[2018-12-14] MEDS: Enoxaparin Sodium 40 MG/0.4 ML SYRINGE SC SCH (09:26)
[2018-12-14] MEDS: levETIRAcetam In NaCl (Iso-Os) 1,500 MG in Premix Bag 1 BAG IVPB SCH ×2 (09:26→21:10)
[2018-12-14] MEDS: DULoxetine 30 MG CAP PO SCH (09:26)
[2018-12-14] MEDS: lamoTRIgine 100 MG TAB PO SCH ×2 (09:27→21:09)
[2018-12-14] MEDS: risperiDONE 1 MG TAB PO SCH ×2 (09:27→21:09)
[2018-12-14] MEDS: Ferrous Sulfate 325 MG TAB PO SCH ×2 (09:27→21:09)
--- NOTE | 2018-12-14 17:18 | EKG ---
Test Reason : LEVEL 2 TRAUMA Blood Pressure : / mmHG Vent. Rate : 102 BPM Atrial Rate : 102 BPM P-R Int : 140 ms QRS Dur : 080 ms QT Int : 348 ms P-R-T Axes : 029 -36 024 degrees QTc Int : 453 ms Sinus tachycardia Left axis deviation Abnormal ECG Confirmed by IRMA TRUONG D.O. ([id number]), film and video editor AUDRA ALBARRAN ([id number]) on 12/14/2018 5:18:38 PM Referred By: Confirmed By:IRMA TRUONG D.O.
[2018-12-14] MEDS: traZODone HCl 50 MG TAB PO SCH (21:09)
--- NOTE | 2018-12-14 21:29 | DIS ---
DATE OF ADMISSION: 12/12/2018 DATE OF DISCHARGE: 12/14/2018 DIAGNOSES AT THE TIME OF DISCHARGE: 1. Recurrent seizures. 2. History of schizophrenia. 3. Parkinson disease. 4. History of major depressive disorder. 5. Dementia. 6. Chronic anemia. 7. History of epilepsy. 8. History of brain tumor and status post removal. 9. Chest pain with negative workup by echocardiogram and troponin levels and EKG. 10. Head trauma status post fall, not requiring surgical intervention. LINE SUPERVISOR: Dr. Valentino Aguero, Neurology Service. HOSPITAL COURSE: The patient is a 63-year-old senior care resident, who was brought to the hospital after he had seizures at the senior care where he resides. Also, apparently he had some chest pain too. He had tonic-clonic seizures in the past and this was related to his brain tumor, which was removed. While in the emergency room getting evaluated, his white count was 8.2, hemoglobin 14.8, hematocrit 43.4, platelet count 218. INR 1.1. PT of 14.2. He had normal electrolytes, normal kidney function. Lactic acid was 2.8, then repeated few hours later 0.7. Troponin I was less than 0.010 and third generation TSH was 1.47. Chest x-ray showed no acute abnormalities. Cervical spine showed some degenerative changes bilaterally at C5 and C6 and anterior longitudinal ligament calcification at the level of C3 through C5. There was no acute fracture. There was mild central spinal stenosis at C3 and C5. CT of the brain showed soft tissue swelling and small scab contusion in the right occipital region. Also, it showed some prior left frontal craniotomy with bur holes in the left frontoparietal and left occipital regions. There was no acute intracerebral abnormality or injury. There was a ventriculostomy shunt catheter in place and there was chronic encephalomalacia in the left frontotemporal lobes presumably post brain tumor surgery. His EKG showed normal sinus rhythm with ventricular rate of 68 beats per minute. There was no any ischemic changes. The patient got evaluated in the emergency room while being there. He had additional episode of seizures, which was tonic clonic. He was given IV Ativan and he was loaded with Keppra IV and he was given 1 L of normal saline. He got admitted to the hospital for further management. He did not have more seizures during the hospitalization. He was seen by Dr. Aguero for Neurology consultation, who recommended to increase his Keppra dose to 1500 mg twice a day and continue Lamictal at current dosing. Today, he is doing fine. His blood pressure is 117/76, pulse is 73, temperature is 98.1, and O2 saturation is 96% on 2 L by nasal cannula. He is sent back to the senior care on regular diet. MEDICATIONS: 1. At the time of discharge. 2. Trazodone 50 mg q.p.m. 3. Keppra 1500 mg twice a day. 4. Risperdal 4 mg twice a day. 5. Lamotrigine 200 mg twice a day. 6. Cymbalta 30 mg every morning. 7. Ferrous sulfate 325 mg twice a day plus p.r.n. FOLLOWUP: He is going to see his primary care physician in 1 week. TIME SPENT: The discharge time is less than 30 minutes. Job ID: [id number]
[2018-12-15] MEDS: Sodium Chloride 0.9% 1,000 ML IV SCH ×2 (05:08→23:03)
[2018-12-15] MEDS: lamoTRIgine 100 MG TAB PO SCH ×2 (13:10→21:30)
[2018-12-15] MEDS: risperiDONE 1 MG TAB PO SCH ×2 (13:10→21:30)
[2018-12-15] MEDS: DULoxetine 30 MG CAP PO SCH (13:10)
[2018-12-15] MEDS: Ferrous Sulfate 325 MG TAB PO SCH ×2 (13:10→21:30)
[2018-12-15] MEDS: Enoxaparin Sodium 40 MG/0.4 ML SYRINGE SC SCH (13:10)
[2018-12-15] MEDS: levETIRAcetam In NaCl (Iso-Os) 1,500 MG in Premix Bag 1 BAG IVPB SCH ×2 (13:18→21:16)
--- NOTE | 2018-12-15 15:38 | PRG ---
DATE OF SERVICE: 12/15/2018 SUBJECTIVE: The patient is seen and examined at the bedside. His mental condition has not very improved. He is lying in bed, and sporadically answers with just one word and he is refusing to eat much and take pills. OBJECTIVE: VITAL SIGNS: Blood pressure is 125/77, pulse is 74, temperature is 98.6, respirations are 20, and O2 saturation is 92% on room air. HEENT: His sclerae are nonicteric. Oral mucosa is moist. NECK: Supple. LUNGS: Clear. HEART: S1 and S2 normal. ABDOMEN: Soft, nondistended. EXTREMITIES: No clubbing, cyanosis, or edema. NEUROLOGICAL: He does not follow my commands. He moves his 4 extremities. According to the nurse, he lies flat during my visit with him and he does not want to answer much. LABORATORY DATA: Labs showed chemistry normal, glucose 76, and calcium 8.4. IMPRESSION: 1. Recurrent seizures, currently on higher dose of Keppra. 2. History of schizophrenia. 3. Parkinson disease. 4. History of major depressive disorder. 5. Dementia. 6. Chronic anemia. 7. History of epilepsy. 8. History of brain tumor and status post removal. 9. Chest pain with negative workup per echocardiogram and troponin levels and EKG. 10. Head trauma, status post fall, not requiring surgical intervention. DISCUSSION: The patient's discharge was put on hold since he is not taking much food orally and he is refusing his medications, so [facility]. Apparently, they used some topical combination of Haldol with some other ingredients when the patient gets to this point and starts behaving like he is behaving now, refusing food and medications, but we do not have this combination on the formulary in our pharmacy. So we are planning to get family to bring this medicine from the jail, so we can start using it, and hopefully, we can get him out of the hospital in the next day or two, once he starts eating and taking his medications. Otherwise, he will be back in the next few days with another seizures. So, for now, we will continue his Keppra IV piggyback q.12 hours until he starts eating and taking his pills, then we will switch him to oral. So, he is not going to be discharged back to the jail before we correct this problem. Job ID: [id number]
[2018-12-15] MEDS: traZODone HCl 50 MG TAB PO SCH (21:30)
[2018-12-16] MEDS: DULoxetine 30 MG CAP PO SCH (08:28)
[2018-12-16] MEDS: levETIRAcetam In NaCl (Iso-Os) 1,500 MG in Premix Bag 1 BAG IVPB SCH ×2 (08:28→20:41)
[2018-12-16] MEDS: Enoxaparin Sodium 40 MG/0.4 ML SYRINGE SC SCH (08:28)
[2018-12-16] MEDS: risperiDONE 1 MG TAB PO SCH ×2 (08:29→20:42)
[2018-12-16] MEDS: Ferrous Sulfate 325 MG TAB PO SCH ×2 (08:29→20:42)
[2018-12-16] MEDS: lamoTRIgine 100 MG TAB PO SCH ×2 (08:29→20:42)
[2018-12-16] MEDS: Sodium Chloride 0.9% 1,000 ML IV SCH (10:27)
[2018-12-16] MEDS ORDERED: Haloperidol Lactate 5 MG/ML VIAL IM PRN (11:26)
[2018-12-16] MEDS ORDERED: diphenhydrAMINE 50 MG/ML VIAL IVP PRN (11:38)
[2018-12-16] MEDS: [UNRECOGNIZED DRUG - OTHER] TOP PRN (13:46)
--- NOTE | 2018-12-16 14:34 | PDOC.HOSPP ---
- Subjective Subjective: Seen and examined. Patient agitated, when I place my stethoscope on him he throws it off his body and becomes aggressive. [facility] chronic resident of [facility] who states that this is common for him where he has episodes where he will not eat, or take any of his medications. They do have a topical gel which they administer that has been effective for him in the past which is a combination of Ativan, Benadryl, and Haldol I have given the okay for nursing staff to administer this when it is available. Patient has a DNR in place appropriately. - Objective Vital Signs & Weight: Vital Signs (12 hours) Temp Pulse Resp BP Pulse Ox 12/16/18 07:53 98.6 F 76 16 87/49 L 95 12/16/18 03:54 98 F 69 16 101/60 92 L Weight Admit Weight 154 lb 9.6 oz Weight 154 lb 9.6 oz I&O: 12/15/18 12/16/18 12/17/18 06:59 06:59 06:59 Intake Total 2358 2528 Balance 2358 2528 Result Diagrams: 12/13/18 04:21 12/14/18 07:36 Radiology Reviewed by me: Yes (Echocardiogram) Hospitalist ROS - Review of Systems ROS unobtainable: due to mental status - Medication Medications: Active Medications Generic Name Dose Route Start Last Admin Trade Name Freq PRN Reason Stop Dose Admin Duloxetine HCl 30 mg 12/13/18 09:00 12/16/18 08:28 Cymbalta PO Not Given QAM [facility] Enoxaparin Sodium 40 mg 12/13/18 09:00 12/16/18 08:28 Lovenox SC Not Given 0900 [facility] Ferrous Sulfate 325 mg 12/12/18 21:00 12/16/18 08:29 Feosol PO Not Given BID NICK Sodium Chloride 1,000 mls @ 75 mls/hr 12/12/18 15:30 12/16/18 10:27 Normal Saline 0.9% IV 1,000 mls .[id number] NICK Administration Levetiracetam 1,500 mg/ Device 100 mls @ 200 mls/hr 12/13/18 21:00 12/16/18 08:28 IVPB 100 mls BID NICK Administration Lamotrigine 200 mg 12/12/18 21:00 12/16/18 08:29 Lamictal PO Not Given BID [facility] Patient's Home 0 each 12/16/18 12:10 12/16/18 13:46 Medication Abh Lipo TOP 1 each Q4H PRN Administration ANXIETY/AGITATION Risperidone 4 mg 12/12/18 21:00 12/16/18 08:29 Risperidone PO Not Given BID [facility] Trazodone HCl 50 mg 12/12/18 21:00 12/15/18 21:30 Desyrel PO Not Given QPM [facility] - Exam General Appearance: NAD, awake alert ENT: no oropharyngeal lesions, dry oral mucosa Neck: supple, symmetric Heart: no murmur, no gallops, no rubs Respiratory: CTAB, no wheezes, no rales, no ronchi Gastrointestinal: soft, non-tender, no guarding, no rigidity Extremities: no clubbing, no edema Skin: no rashes Neurological: cranial nerve grossly intact, no focal deficits Musculoskeletal: generalized weakness Psychiatric: not oriented Hosp A/P (1) Recurrent seizures Code(s): G40.909 - EPILEPSY, UNSP, NOT INTRACTABLE, WITHOUT STATUS EPILEPTICUS Status: Chronic (2) Acute encephalopathy Code(s): G93.40 - ENCEPHALOPATHY, UNSPECIFIED Status: Chronic (3) PNA (pneumonia) Code(s): J18.9 - PNEUMONIA, UNSPECIFIED ORGANISM Status: Acute (4) Parkinson disease Code(s): G20 - PARKINSON'S DISEASE Status: Chronic (5) Physical deconditioning Code(s): R53.81 - OTHER MALAISE Status: Chronic (6) Alzheimer's dementia Code(s): G30.9 - ALZHEIMER'S DISEASE, UNSPECIFIED Status: Chronic (7) H/O brain tumor Code(s): Z87.898 - PERSONAL HISTORY OF OTHER SPECIFIED CONDITIONS Status: Chronic (8) Seizure disorder Code(s): G40.909 - EPILEPSY, UNSP, NOT INTRACTABLE, WITHOUT STATUS EPILEPTICUS Status: Chronic - Plan Plan: medical unit with telemetry, okay for discontinuation of telemetry neurology consultation, recommendations patient palliative care consultation, recommendations appreciated next line patient's [facility] states that he has been on hospice in the past as an inpatient at their facility topical Benadryl, Ativan, Haldol has been effective for this patient in the past when he is not eating and drinking or taking his medications patient has a do not resuscitate in place overall prognosis for meaningful recovery is poor continue other medications as able
[2018-12-16] MEDS: traZODone HCl 50 MG TAB PO SCH (20:42)
[2018-12-17] MEDS: Sodium Chloride 0.9% 1,000 ML IV SCH ×2 (00:43→14:46)
[2018-12-17] MEDS ORDERED: [UNRECOGNIZED DRUG - OTHER] TOP SCH (09:00)
[2018-12-17] MEDS: levETIRAcetam In NaCl (Iso-Os) 1,500 MG in Premix Bag 1 BAG IVPB SCH (09:17)
[2018-12-17] MEDS: Ferrous Sulfate 325 MG TAB PO SCH (09:25)
[2018-12-17] MEDS: lamoTRIgine 100 MG TAB PO SCH (09:25)
[2018-12-17] MEDS: risperiDONE 1 MG TAB PO SCH (09:25)
[2018-12-17] MEDS: Enoxaparin Sodium 40 MG/0.4 ML SYRINGE SC SCH (09:25)
[2018-12-17] MEDS: DULoxetine 30 MG CAP PO SCH (09:26)
[2018-12-17] MEDS: [UNRECOGNIZED DRUG - OTHER] TOP PRN (13:27)
--- NOTE | 2018-12-17 13:51 | PDOC.PALCO ---
Palliative Care Consult - Consult Details Requesting Physician: Dr Ashley Reason for Consult: goals of care Family Members Present: None - Pertinent HPI resident of [facility]. Patient was lifelighted to [facility] secondary to seizure and chest pain with new onset of right sided hemiparesis. Evaluated in the emergency room and admitted for further evaluation. - Social History Smoking Status: Unknown if ever smoked Smoking: no tobacco exposure Alcohol Use: none Drug Use History: none Living Situation: halfway resident - Medications MAR Reviewed: Yes - Allergies Allergies/Adverse Reactions: Allergies Allergy/AdvReac Type Severity Reaction Status Date / Time divalproex sodium Allergy Verified 10/13/18 06:07 [From Depakote] - Subjective Patient verbal but confused, cooperative for assessment. ROS: Unable to perform accurate 10 point review as patient responses are not related to questions asked in reviewing systems. - Objective Vital Signs: Vital Signs - Most Recent Temp Pulse Resp BP Pulse Ox 97.5 F L 111 H 18 99/64 95 12/17/18 12:00 12/17/18 12:00 12/17/18 12:00 12/17/18 12:00 12/17/18 12:00 Palliative Performance Scale: 30 - Physical Exam Constitutional: confusion HEENT: moist MMs, EOMI Respiratory: no wheezing, unlabored breathing Cardiovascular: no significant murmur Gastrointestinal: soft, non-tender, positive bowel sounds Musculoskeletal: no edema, pulses present Deviation from normal: Flat affect, confused Skin: normal turgor, cap refill <2 seconds - Problem List (1) Palliative care encounter Code(s): Z51.5 - ENCOUNTER FOR PALLIATIVE CARE Current Visit: Yes Status: Acute (2) Acute encephalopathy Code(s): G93.40 - ENCEPHALOPATHY, UNSPECIFIED Current Visit: No Status: Chronic (3) Alzheimer's dementia Code(s): G30.9 - ALZHEIMER'S DISEASE, UNSPECIFIED Current Visit: No Status: Chronic (4) H/O brain tumor Code(s): Z87.898 - PERSONAL HISTORY OF OTHER SPECIFIED CONDITIONS Current Visit: No Status: Chronic (5) Physical deconditioning Code(s): R53.81 - OTHER MALAISE Current Visit: No Status: Chronic (6) Seizures Code(s): R56.9 - UNSPECIFIED CONVULSIONS Current Visit: No Status: Chronic - Plan/Recommendations Plan: Patient assessed and secondary to disease trajectory and recent decline would be appropriate to resume hospice services to manage symptoms related to chronic disease processes. L Nicolas to reach out to family to confirm that they are in agreement with initiating an evaluation by hospice services to resume hospice care. Hospice consult placed. Dr Ashley notified. OOHDNAR in place. [40] minutes spent on this encounter with >50% of the time in counseling and coordination of care. Thank you for this very appropriate consult.
[2018-12-17 16:01] VITALS: TEMP 98.5
[2018-12-17 16:31] VITALS: BP 91/59
--- NOTE | 2018-12-17 23:17 | DIS ---
DATE OF ADMISSION: 12/12/2018 DATE OF DISCHARGE: 12/17/2018 DISCHARGE MEDICATIONS: Please see full list for details; 1. Bisacodyl 10 mg per rectal p.r.n. daily. 2. Ferrous sulfate 325 mg one tablet p.o. b.i.d. 3. Duloxetine 30 mg one tablet p.o. q.a.m. 4. DuoNeb q.i.d. p.r.n. shortness of breath. 5. Ibuprofen 600 mg p.o. q.6 hours p.r.n. pain. 6. Lorazepam 1 mg p.o. q.4 hours p.r.n. anxiety. 7. Lamotrigine 200 mg one tablet p.o. b.i.d. 8. Senokot-S 2 tabs p.o. q.12 hours p.r.n. constipation. 9. Risperidone 4 mg one tablet p.o. b.i.d. 10. Keppra 1500 mg one tablet p.o. b.i.d. 11. Trazodone 50 mg at bedtime. REASON FOR HOSPITALIZATION: The patient was transferred from [place] for multiple complaints including fall, chest pain, and possible seizure-type activity. SIGNIFICANT FINDINGS: The patient was seen and evaluated by Neurology, who recommended that the patient with past medical history of brain tumor, status post resection with seizure disorder, was in his regular state of health and no further acute surgical or medical workup was required. Neurology recommending that the patient was safe for discharge. PROCEDURES PERFORMED AND TREATMENTS RENDERED: The patient was restarted on antiepileptic drugs. He had a CT scan of the brain, and all appropriate imaging including CT scan of the cervical spine and chest [id number] see full reports for details. CONDITION ON DISCHARGE: Stable. SPECIFIC INSTRUCTIONS FOR THE PATIENT/FAMILY: 1. The patient is recommended safe for discharge back to alf facility, where he is a chronic resident. At that time, the patient will be evaluated by outpatient hospice, whom he has been following up with in the past and they will further coordinate his care. 2. The patient is recommended to take all medications as directed, to be re-evaluated by admitting physician at alf facility. 3. The patient is recommended to follow up with primary care physician and Neurology until he is confirmed to be on hospice services and then at that point, he will follow up with hospice physician. 4. The patient is recommended to return to acute care hospital immediately if signs or symptoms return, worsen, or any other new symptoms occur-as long as the patient is not on hospice care. HOSPITAL COURSE: Mr. Shelton is a 63-year-old gentleman, who is a chronic resident of alf facility, who was brought in by air ambulance from [place] after having seizures and chest pain with a subsequent fall. The patient does have a past medical history of brain tumor that has been resected and since that time has had seizures. The patient also with past medical history of [employer] shunt. The patient was evaluated by Neurology, please see full consultation and progress notes for details. The patient had all appropriate imaging including CT scan of the cervical spine, CT scan of the brain, and chest [id number] see full reports for details. Neurology recommending restarting antiepileptic drug and no further acute inpatient surgical or medical workup. The patient was planned for discharge on 12/14/2018; however, he was not eating or drinking or taking any of his medications and the discharge was held. Efforts were made to talk with the patient's alf facility and they state that when he does this, there is a topical medication that they put on his arms and this causes the patient to be more cooperative. This combination was sent over from the patient's alf facility and when applied by nursing staff, the patient was more cooperative. He was pleasant and ate his meals completely. The patient took his medications without problems, the combination of medications including topical Benadryl, Haldol, and Ativan. Once the patient was eating and drinking fine and taking his medications without problems, he was re-evaluated and recommended safe for discharge. The patient's alf facility requesting that he be re-evaluated for hospice care. Our palliative care team did evaluate the patient and they worked with the patient's power of shrimp peeler to help set up hospice in the outpatient setting at his alf facility. The patient recommended safe for discharge on 12/17/2018. The patient is recommended to take all medications as directed, to be re-evaluated by admitting physician at alf facility. The patient recommended to continue to follow up with primary care physician and Neurology as long as he is not on hospice care. The patient recommended to continue with his do not resuscitate and do not intubate status. The patient is recommended to return to acute care hospital immediately if signs or symptoms return, worsen, or any other new symptoms occur. Greater than 38 minutes spent coordinating care and discharge process for this patient. Job ID: [id number]
--- NOTE | 2018-12-23 10:39 | PQF ---
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 Clinical indicators are provided on the bottom of this form for your review Please check appropriate box(s): [ x ] Post ictal encephalopathy [ ] Acute encephalopathy [ ] Metabolic encephalopathy [ ] Other diagnosis [ ] Unable to determine In addition, please specify: Present on Admission (POA): [ x ] Yes [ ] No [ ] Unable to determine For continuity of documentation, please document condition throughout progress notes and discharge summary. Thank You. CLINICAL INDICATORS - SIGNS / SYMPTOMS / LABS - Acute encephalopathy-Hospital PN, 12/12, Dion Zamudio MD - Recurrent seizures-Hospital PN, 12/12, Dion Zamudio MD - Parkinson disease-Hospital PN, 12/12, Dion Zamudio MD - Lactic acid :2.8H-Laboratory, 12/12 RISK FACTORS - Alzheimer dementia-Hospital PN, 12/12, Dion Zamudio MD - Pneumonia-Hospital PN, 12/12, Dion Zamudio MD - H/o Brain tumor-Hospital PN, 12/12, Dion Zamudio MD - s/p brain tumor resection- , 12/17, ANA PRASAD MD TREATMENTS: - Keppra.PO-MAY, 12/17 - Sodium chloride.IV-MAR, 12/12 (This form is maintained as a part of the permanent medical record) 2014 [employer] All Rights Reserved David Adame [not provided] [not provided] JIGARD
== END 2018-12-17 17:25 | DRG 101 ==
LOC: ERS 06:47 → ERHOLD 09:09 → 2SE 14:00
PROVIDERS: ADMIT Internal Medicine; ATTEND Internal Medicine
DX: G40.909 Epilepsy, unspecified, not intractable, without status epilepticus (principal); Z66 Do not resuscitate; W18.30XA Fall on same level, unspecified, initial encounter; G20 Parkinson's disease; F20.9 Schizophrenia, unspecified; F02.80 Dementia in other diseases classified elsewhere, unspecified severity, without behavioral disturbance, psychotic disturbance, mood disturbance, and anxiety; D64.9 Anemia, unspecified; Z51.5 Encounter for palliative care; G30.9 Alzheimer's disease, unspecified; M48.02 Spinal stenosis, cervical region; Z91.14 Patient's other noncompliance with medication regimen; Z98.2 Presence of cerebrospinal fluid drainage device
CPT/HCPCS: 36415; 51701; 70450; 71045; 72125; 80048; 80053; 81003; 81015; 83605; 84443; 84484; 85025; 85610; 85730; 86850; 86900; 86901; 87040; 87086; 93005; 93306; 96365; 96375; G0390; J1650; J1953; J2060

== ENCOUNTER 2018-12-17 17:57 | Emergency (ER) | payer MEDICARE, MEDICAID ==
[2018-12-17 19:12] LABS: #Eosinphils 0.2 thou/uL (0.0-0.7); #Lymphocytes 1.8 thou/uL (1.20-3.40); #Monocytes 0.8 thou/uL (0.11-0.59); #Neutrophils 3.2 thou/uL (1.40-6.50); %Basophils 0.7 % (0.0-1.0); %Lymphocytes 29.4 % (21.0-51.0); %Monocytes 13.6 % (0.0-10.0); %Neutrophils 53.4 % (42.0-75.0); Hemoglobin 11.6 g/dL (14.0-18.0); Mean Corpuscular HGB CONC 34.8 g/dL (32.0-36.0); Mean Corpuscular Hemoglobin 32.7 pg (27.0-31.0); Mean Platelet Volume 6.3 fL (7.4-10.4); Platelet Count 251 thou/uL (130-400); Red Blood Cell (RBC) Count 3.55 mill/uL (4.70-6.10)
[2018-12-17 19:26] LABS: ALT (SGPT) 7 U/L (8-55); AST (SGOT) 12 U/L (5-34); Albumin 3.4 g/dL (3.4-4.8); Alkaline Phosphatase 44 U/L (40-110); Anion Gap 9 mmol/L (10-20); BUN (Urea Nitrogen) 15 mg/dL (8.4-25.7); Bilirubin, Total 0.3 mg/dL (0.2-1.2); Calc. Creatinine Clearance 0 mL/min (70-130); Calcium 8.9 mg/dL (7.8-10.44); Carbon Dioxide 25 mmol/L (23-31); Chloride 107 mmol/L (98-107); Estimated GFR-MDRD Greater than 90; Globulin 2.5 g/dL (2.4-3.5); Glucose 101 mg/dL (80-115); Potassium 3.4 mmol/L (3.5-5.1); Protein, Total 5.9 g/dL (5.8-8.1); Sodium 138 mmol/L (136-145)
--- NOTE | 2018-12-17 19:41 | RAD ---
CHEST ONE VIEW: 12/17/18 HISTORY: Dyspnea. Hypotension. COMPARISON: 12/12/18. FINDINGS: The cardiac silhouette is magnified by projection. Shallow inspiration accentuates the pulmonary alvin ings. Mediastinum is midline. Radiopaque tubing over the left mediastinum has the appearance of a paige triculoperitoneal shunt. No lobar consolidation or evidence of pneumothorax. Old right rib fractures and shoulder/clavicular abnormalities. laboratory monitor leads overlie the chest. IMPRESSION: Chronic type findings are stable. No active cardiopulmonary abnormalities are demonstrated. POS: BST
== END 2018-12-17 20:58 ==
LOC: ERS 17:57
DX: I95.9 Hypotension, unspecified (principal); G20 Parkinson's disease; G40.909 Epilepsy, unspecified, not intractable, without status epilepticus; F20.9 Schizophrenia, unspecified; F32.9 Major depressive disorder, single episode, unspecified; D64.9 Anemia, unspecified; Z79.899 Other long term (current) drug therapy
CPT/HCPCS: 36415; 71045; 80053; 83605; 84484; 85025; 93005